=== PATIENT | male | born 1940 | race Caucasian/White ===

== ENCOUNTER → 2016-12-25 | Outpatient (CLI) | payer MEDICARE ==
[~2016-12-25] MED LIST: ASPI-266 PO; CEPH500C PO; CHOL100061 PO; CPR500T PO; ERGO2000 PO; FENO134C PO; HCT25T; HYDR-3583 PO; HYDR-707 PO; HYOS0.1216 PO; LISI1TAB PO; LVT.05T PO; METO25TA6 PO; MTF500T PO; OLME40TA14; OMEG-9 PO; PHEN200T27 PO; PNV1TABL74 PO; RIVA20TA4 PO; SIMV40TA2 PO
== END ==
LOC: LAB 10:22
PROVIDERS: ATTEND Urology
DX: Z08 Encounter for follow-up examination after completed treatment for malignant neoplasm (principal); Z85.51 Personal history of malignant neoplasm of bladder
CPT/HCPCS: 88112

== ENCOUNTER 2017-06-30 20:57 | Outpatient (CLI) | payer MEDICARE ==
[~2017-06-30 20:57] MED LIST changes: +ASPI-983 PO; +CHOL10007 PO; +FLUT1AER IH; +LEVO50TA6 PO; +METF500T4 PO; +METO-333 PO; +RIVA20TA PO; +SIMV40TA4 PO
== END 2017-07-01 06:40 | disposition home or self-care (01) ==
LOC: SLEEP 20:57
PROVIDERS: ATTEND Family Medicine
DX: G47.10 Hypersomnia, unspecified (principal)
CPT/HCPCS: 95810

== ENCOUNTER → 2017-08-10 | Outpatient (CLI) | payer MEDICARE ==
[~2017-08-10] MED LIST changes: +CATHETER FLUSH 10 ML SYR IV PRN; +IOHEXOL 350 MG/ML 150 ML (OMNIPAQUE 350) VIAL IV ONE; +NS 100 ML (IVPB) BAG IV ONE
[2017-08-10 08:43] LABS: BLOOD UREA NITROGEN 16 MG/DL (7-18); BUN/CREATININE RATIO 20; CREATININE SERUM 0.81 MG/DL (0.60-1.30); GFR ESTIMATED > 60
--- NOTE | 2017-08-10 13:17 | Diagnostic Imaging Report ---
PROCEDURE: CT angiography of the chest with contrast. TECHNIQUE: Multiple contiguous axial images were obtained through the chest after uneventful bolus administration of intravenous contrast. Reconstructed CTA MIP acquisitions were also performed. INDICATION: Followup dilated aortic root. 125 mL of Omnipaque 350 is administered intravenously. COMPARISON: 12/28/13. FINDINGS: The lungs demonstrate severe emphysema changes, worst in the upper lobes. There is no significant consolidation, mass or suspicious nodule. There is mild ectasia of the aortic root measuring up to 3.8 cm in caliber. No significant aneurysmal dilatation of the thoracic aorta. There is no aortic dissection. The great vessels branches from the aortic arch are patent. The heart size is normal. Coronary artery calcifications are noted. There is no pericardial or pleural effusion. No significant hilar, axillary or mediastinal lymphadenopathy. Sections in the upper abdomen demonstrate atherosclerotic disease and mild ectasia of the aorta with no significant aneurysmal dilatation. The osseous structures demonstrate degenerative changes. IMPRESSION: 1. Severe emphysema. 2. Mild ectasia of the aortic root measuring 3.8 cm. No significant aneurysmal dilatation. No dissection. Dictated by: Dictated on workstation # [id number]
== END ==
LOC: RAD 08:11
PROVIDERS: ATTEND Internal Medicine Interventional Cardiology
DX: I77.810 Thoracic aortic ectasia (principal); J43.9 Emphysema, unspecified
CPT/HCPCS: 36415; 71275; 82565; 84520

== ENCOUNTER → 2017-10-11 | Outpatient (CLI) | payer MEDICARE ==
[~2017-10-11] MED LIST changes: +IOHEXOL 350 MG/ML 100 ML (OMNIPAQUE 350) VIAL IV ONE; -IOHEXOL 350 MG/ML 150 ML (OMNIPAQUE 350) VIAL IV ONE
[2017-10-11 12:42] LABS: BUN/CREATININE RATIO 23; CREATININE SERUM 0.77 MG/DL (0.60-1.30); GFR ESTIMATED > 60
--- NOTE | 2017-10-11 14:44 | Diagnostic Imaging Report ---
PROCEDURE: CT angiography of the chest with contrast. TECHNIQUE: Multiple contiguous axial images were obtained through the chest after uneventful bolus administration of intravenous contrast. Reconstructed CTA MIP acquisitions were also performed. INDICATION: Dilated aortic root. FINDINGS: The previous CTA chest exam of 08/10/2017 noted mild ectasia of the aortic root. On the coronal images of the prior exam, the aortic root measured approximately 3.8 cm in maximum transverse diameter. On this study, the root measures slightly larger and is now estimated to be 4.0 cm. The ascending aorta measures 3.4 cm in maximum diameter. There is no sign of a dissection. There is no defect within the pulmonary arteries to indicate a pulmonary embolus. The heart size is within normal limits and stable when compared to the prior exam. Coronary artery calcifications are again noted. There are severe emphysematous changes involving both upper lobes, and there are emphysematous changes throughout the lower lobes as well. There is no sign of failure, pneumonia, or pleural effusion to indicate an acute abnormality. There is no mediastinal or hilar adenopathy noted. As on the prior exam, there is some mucus within the tracheal air shadow on the left. The thyroid gland was not well visualized. The sections through the upper abdomen show no evidence for an acute abnormality. The bone windows are unremarkable for a fracture or for a destructive lesion. There is a loop recorder device in place in the anterior thorax at the level of the mid sternum. IMPRESSION: 1. There is no evidence for an acute cardiopulmonary abnormality. 2. The aortic root is borderline dilated measuring approximately 4 cm. The aortic root does measure slightly larger than noted on the prior exam. 3. There are severe emphysematous changes involving both lungs, particularly the upper lobes. Dictated by: Dictated on workstation # [id number]
== END ==
LOC: RAD 12:03
PROVIDERS: ATTEND Internal Medicine Cardiovascular Disease
DX: I77.819 Aortic ectasia, unspecified site (principal); J43.9 Emphysema, unspecified; I48.0 Paroxysmal atrial fibrillation; E78.2 Mixed hyperlipidemia; I49.5 Sick sinus syndrome
CPT/HCPCS: 36415; 71275; 82565; 84520

== ENCOUNTER → 2020-12-17 | Outpatient (CLI) | payer MEDICARE ==
[~2020-12-17] MED LIST changes: +ASPI-1238 PO; -ASPI-983 PO; -CATHETER FLUSH 10 ML SYR IV PRN; -IOHEXOL 350 MG/ML 100 ML (OMNIPAQUE 350) VIAL IV ONE; +METF-397 PO; -METF500T4 PO; -NS 100 ML (IVPB) BAG IV ONE; -RIVA20TA PO; +RIVA20TA2 PO; +SIMV40TA25 PO; -SIMV40TA4 PO
== END ==
LOC: CARD 11:30
PROVIDERS: ATTEND Internal Medicine Cardiovascular Disease
DX: I10 Essential (primary) hypertension (principal); I34.8 Other nonrheumatic mitral valve disorders
CPT/HCPCS: 93306

== ENCOUNTER 2020-12-25 09:30 | Day surgery (SDC) | payer MEDICARE ==
[2020-12-25] VITALS (20 sets, daily range): BP systolic 124–190; BP diastolic 70–105
[~2020-12-25] VITALS: Ht 185 cm; Wt 55.8 kg
[2020-12-25] MEDS: NS IV 1000 ML 1,000 ML IV SCH ×4 (07:28→17:27)
[2020-12-25 07:37] LABS: WHITE BLOOD COUNT 6.8 10^3/uL (4.3-11.0)
[2020-12-25 07:59] LABS: ALANINE AMINOTRANSFERASE 27 U/L (0-55); ALKALINE PHOSPHATASE 93 U/L (40-136); BILIRUBIN,TOTAL 0.5 MG/DL (0.1-1.0); BUN/CREATININE RATIO 22; CALCIUM 9.2 MG/DL (8.5-10.1); CARBON DIOXIDE 25 MMOL/L (21-32); CHLORIDE 99 MMOL/L (98-107); CHOLESTEROL 167 MG/DL (< 200); CREATININE SERUM 0.87 MG/DL (0.60-1.30); GFR ESTIMATED > 60; GLUCOSE 113 MG/DL (70-105); HDL CHOLESTEROL 85 MG/DL (40-60); POTASSIUM 3.9 MMOL/L (3.6-5.0); SODIUM 138 MMOL/L (135-145); TOTAL PROTEIN 7.1 GM/DL (6.4-8.2); TRIGLYCERIDES 57 MG/DL (<150); VLDL CHOLESTEROL 11 MG/DL (5-40)
[2020-12-25 08:01] LABS: PROTHROMBIN TIME PATIENT 13.6 SEC (12.2-14.7)
--- NOTE | 2020-12-25 08:08 | Diagnostic Imaging Report ---
INDICATION: Preop for heart catheterization and coronary angioplasty. Patient has diastolic dysfunction and shortness of breath. Time of exam: 7:57 AM Comparison is made with prior chest from 05/22/2011. The heart size is normal. The lungs demonstrate some hyperinflation consistent with COPD. No infiltrates are seen. There is no effusion or pneumothorax. IMPRESSION: COPD. No other significant abnormality is detected. Dictated by: Dictated on workstation # [id number]
--- NOTE | 2020-12-25 08:37 | Conscious Sedation/ASA ---
Conscious Sedation Pre-Proced Time 08:36 ASA Score 3 For ASA 3 and 4: Consider anesthesia and medical clearance. Also, for patients with a history of failed moderate sedation consider anesthesia. Airway Lungs Heart ASA score ASA 1: a normal healthy patient ASA 2: a patient with a mild systemic disease (mid diabetes, controlled hypertension, obesity x ASA 3: a patient with a severe systemic disease that limits activity (angina, COPD, prior Myocardial infarction) ASA 4: a patient with an incapacitating disease that is a constant threat to life (CHF, renal failure) ASA 5: a moribund patient not expected to survive 24 hrs. (ruptured aneurysm) ASA 6: a declared brain- patient whose organs are being harvested. For emergent operations, add the letter E after the classification Mallampati Classification Grade 3 Sedation Plan Analgesia, Amnesia, Plan communicated to team members, Discussed options with patient/fam, Discussed risks with patient/fam The patient is an appropriate candidate to undergo the planned procedure, sedation, and anesthesia. The patient immediately re-assessed prior to indication. BETTE BRAN MD Dec 25, 2020 08:37
--- NOTE | 2020-12-25 09:17 | Cardiac Cath Report ---
Cardiac Cath Report Physician (s)/Sole Tier (s) Physician BETTE BRAN MD Pre-Procedure Diagnosis Pre-Procedure Diagnosis: Coronary artery disease Post-Procedure Note Procedure Start Date: Dec 25, 2020 Name of Procedure: Left heart catheterization Stenting to the LAD Findings/Procedure Note PROCEDURE NOTE: 80 years old gentleman with history of paroxysmal atrial fibrillation/atrial flutter, had significant drop in his left ventricular systolic function, scheduled for cardiac catheterization possible PTCA. After explaining the procedure to the patient, all pros and cons were explained, all questions were answered. The patient signed the consent and then he was placed on the cardiac catheterization laboratory. Groin was prepped SL fashion local anesthesia was used. Sheath placed in the artery. Geetha right and left catheter were used to access the coronary system. Geetha right catheter was prolapsed to the left ventricular cavity, pressure was measured no left ventriculogram was done, pullback LV to aorta was measured. Percutaneous intervention Patient has severe stenosis in the mid LAD, 5000 units of heparin were given, FL 4.0 guide was advanced to the left coronary system, a BMW wire was advanced and parked in the distal LAD. Predilatation with 2.5 x 20 mm balloon then deployment of Lizzette 2.75 x 23 mm under 17 sergo up to 2.93 mm with excellent results. At the end of the procedure the sheath was removed. Closure device was deployed FINDINGS: Hemodynamics LV 151/13, end-diastolic pressure of 13 Aorta 154/66 mean of 97 ANATOMY: Left Main is free of obstructive disease Left Anterior Descending is calcified at the midportion with severe stenosis, successful balloon angioplasty then deployment of Lizzette 2.75 x 23 mm stent expanded to 2.93 mm with excellent results Left Circumflex is moderate in size with mild disease nonobstructive disease Right Coronory Artery is moderate in size with no obstructive disease LV Gram was not done, pressure was measured CONCLUSION: 1. Severe stenosis in the mid LAD with calcification, successful balloon angioplasty then deployment of Lizzette 2.75 x 23 mm expanded to 2.93 mm with excellent results 2. Otherwise mild coronary artery disease nonobstructive disease 3. Normal left ventricular end-diastolic pressure DISCUSSION AND RECOMMENDATION: Patient was loaded on aspirin and Plavix, Xarelto was restarted, will monitor overnight and planning for discharge in the morning Anesthesia Type: Conscious Sedation Estimated blood loss (mL): 25 ml Contrast Amount: 100 ml Total Radiation Dose: 208 mGy Post-Procedure Diagnosis Post-operative diagnosis: Coronary artery disease Congestive heart failure, chronic compensated left ventricular systolic dysfunction, ischemic cardiomyopathy Paroxysmal atrial fibrillation Hypertension Hyperlipidemia BETTE BRAN MD Dec 25, 2020 09:17
[~2020-12-25 09:30] MED LIST changes: +ASPIRIN 325 MG (5 GR) TABLET ONE; +ATOR10TA66 PO; +BUDE10.2 IH; +CLOPIDOGREL 300 MG (PLAVIX) TABLET PO ONE; +DIGO125T3 PO; +DILT-27 PO; +HEParin (CATH LAB) 2,000 ML IV ONE; +HEParin 1000 UNIT/ML (10ML VIAL) FOR BOLUS ONE; +IPRA3AMP31 IH; +LEVO75TA6 PO; +LIDOCAINE 1% INJ 20 ML 20 ML VIAL ONE; +MIDAZOLAM 5 MG/5 ML (VERSED) VIAL ONE; +NITRO DRIP 25000 MCG/D5W 250 ML IV ONE; +NS IV 1000 ML 1,000 ML ONE; +PATIENT MAY USE OWN MEDS, ALL PO SCH; +RT-ALBUTEROL/IPRATROPIUM 3 ML (DUONEB) VIAL IH PRN; +fentaNYL INJ 100 MCG/2 ML AMP ONE
[2020-12-25] MEDS ORDERED: RIVAROXABAN 20 MG TABLET (XARELTO) PO SCH (18:00)
[2020-12-25] MEDS: RT--FLUTICASONE/SALMETEROL 232-14 (AIRDUO RespiCLICK) IH SCH (18:05)
[2020-12-26] VITALS: BP 161/94
[2020-12-26 01:00] VITALS: BP 164/87
[2020-12-26 02:00] VITALS: BP 136/83
[2020-12-26] MEDS: NS IV 1000 ML 1,000 ML IV SCH ×2 (03:30→05:47)
[2020-12-26 03:31] LABS: HEMOGLOBIN 11.9 g/dL (13.3-17.7); MEAN PLATELET VOLUME 9.5 fL (9.0-12.2); WHITE BLOOD COUNT 7.6 10^3/uL (4.3-11.0)
[2020-12-26 03:44] LABS: CHLORIDE 100 MMOL/L (98-107); POTASSIUM 3.8 MMOL/L (3.6-5.0); SODIUM 139 MMOL/L (135-145)
[2020-12-26 03:45] LABS: CALCIUM 8.6 MG/DL (8.5-10.1); GLUCOSE 103 MG/DL (70-105)
[2020-12-26 03:47] LABS: CARBON DIOXIDE 25 MMOL/L (21-32)
[2020-12-26 03:49] LABS: CREATININE SERUM 0.75 MG/DL (0.60-1.30); GFR ESTIMATED > 60
[2020-12-26 03:50] LABS: BUN/CREATININE RATIO 15
[2020-12-26 04:00] VITALS: BP 117/95
[2020-12-26] MEDS ORDERED: CLOP75TA28 PO (06:34)
[2020-12-26] MEDS ORDERED: ASPI-1238 PO (06:34)
--- NOTE | 2020-12-26 06:35 | Discharge Inst-Post CATH ---
Discharge Inst-CATH/EP Problems Reviewed?: Yes Post Cardiac Cath/EP D/C Inst Follow Up/Plan Appointment with DR Barragan in 2-4 weeks <b>CARDIAC CATH/EP PROCEDURE DISCHARGE INSTRUCTIONS</b> ACTIVITY * Go Home directly and rest. * Limit activity of the leg (or wrist if it was used) for 7 days including aerobics, swimming, jogging, bicycling, etc. * Restrict stair-climbing for 7 days if possible, if not, climb up with your non-cath leg, then bring together on the same step. * Avoid lifting, pushing, pulling or excessive movement of the affected extremity for 7 days. * Customary sexual activity may be resumed after 2 days-use caution not to use a position that strains or causes pain to the affected extremity. * No driving for 24 hours. * NO SMOKING. * Avoid straining for bowel movements for 7 days. * Gentle walking on level ground is allowed. * Returning to work will depend on the type of procedure and the results. Your doctor will discuss this with you. CALL YOUR DOCTOR FOR ANY OF THE FOLLOWING: *If bleeding from the puncture site occurs- Apply gentle pressure to site with clean cloth and call your doctor or EMS. * If a knot or lump forms under the skin, increases in size, or causes pain. * If bruising appears to be worsening or moving further down your leg instead of disappearing. * Temperature above 101 F. CARE OF YOUR GROIN INCISION; * Bruising or purple discoloration of the skin near the puncture site is common. * You may shower only, no bathtub bathing for 5 days. Be careful to avoid slipping as your leg may feel stiff. * If a closure device was used on your femoral artery, please see the attached guide regarding care of the device and your leg. * Leave dressing on FOR 24 hours. CARE OF YOUR WRIST INCISION; * Bruising or purple discoloration of the skin near the puncture site is common. * You may shower. * DO NOT submerge wrist. * Leave dressing on FOR 24 hours. BETTE BARRAGAN MD Dec 26, 2020 06:35
[2020-12-26] MEDS ORDERED: LIDOCAINE 1% INJ 20 ML 20 ML VIAL ONE (07:32)
--- NOTE | 2020-12-26 07:53 | Cardiology Progress Note ---
Subjective Date Seen by Provider: Dec 26, 2020 Time Seen by Provider: 07:50 Subjective/Events-last exam Patient is in bed, feeling well, small bruising on the groin Review of Systems General: No Chills, No Night Sweats, No Fatigue, No Malaise, No Appetite, No Other HEENT: No Head Aches, No Visual Changes, No Eye Pain, No Ear Pain, No Dysphasia, No Sinus Congestion, No Post Nasal Drip, No Sore Throat, No Other Pulmonary: No Dyspnea, No Cough, No Pleuritic Chest Pain, No Other Cardiovascular: No: Chest Pain, Palpitations, Orthopnea, Paroxysmal Noc. Dyspnea, Edema, Lt Headedness, Other Objective-Cardiology Exam Last Set of Vital Signs Vital Signs 12/26/20 12/26/20 12/26/20 01:00 04:00 06:58 Temp 36.4 Pulse 89 Resp 18 B/P (MAP) 117/95 (102) Pulse Ox 98 O2 Delivery Nasal Cannula O2 Flow Rate 2.00 Capillary Refill : Less Than 3 Seconds I&O Intake and Output 12/26/20 00:00 Intake Total 250 ml Output Total 525 ml Balance -275 ml Intake Oral 250 ml Output Urine Total 525 ml Daily Weight Change No General: Alert, Oriented X3, Cooperative HEENT: Atraumatic, PERRLA Neck: Supple, No JVD, No Thyromegaly Lungs: Clear to Auscultation, Normal Air Movement Heart: Regular Rate, Normal S1, Normal S2, No Murmurs Abdomen: Normal Bowel Sounds, Soft, No Tenderness, No Hepatosplenomegaly, No Masses Extremities: No Clubbing, No Cyanosis, No Edema, Normal Pulses, No Tenderness/Swelling Skin: No Rashes, No Breakdown, No Significant Lesion Neuro: Normal Gait, Normal Speech, Strength at 5/5 X4 Ext, Normal Tone, Sensation Intact Psych/Mental Status: Mental Status NL, Mood NL Results Lab Laboratory Tests 12/26/20 02:56 A/P-Cardiology Admission Diagnosis CAD PAF HTN HLP Assessment/Plan CAD, status post stent to LAD with Lizzette 2.75 x 23 mm expanded to 2.93 with excellent results, continue to monitor PAF, loop extracted last week, will proceed with new loop implant today then discharge HTN, controlled, no changes in meds HLP , monitor lipids BETTE BRAN MD Dec 26, 2020 07:53
--- NOTE | 2020-12-26 07:55 | Implantation of Loop Monitor ---
Implant of Loop Monitior IMPLANTATION OF LOOP MONITOR REPORT DATE OF PROCEDURE: 12/26/20 PREOP DIAGNOSIS: Paroxysmal atrial fibrillation POSTOP DIAGNOSIS: Paroxysmal atrial fibrillation PROCEDURE DETAILS: The patient is a 80 male with history of paroxysmal atrial fibrillation requiring long-term surveillance. Therefore implantable loop recorder was discussed and agreed with the patient. Informed consent was taken. All risks and complications were discussed at length. The patient was draped and prepped in the usual sterile fashion. Local anesthesia was lidocaine, which was given in the substernal area close to the 4th intercostal space. Loop monitor [employer]onic [id number] was implanted according to the protocol. Steri-Strips were placed at the end of the procedure. There were no complications and the patient tolerated the procedure well. The device was interrogated with a voltage of. ANESTHESIA: Local anesthesia with lidocaine. COMPLICATIONS: None CONTRAST/FLUOROSCOPY: None CONCLUSION: Successful implantation of a new loop monitor without complication BETTE BRAN MD Dec 26, 2020 07:55
[2020-12-26] MEDS ORDERED: LIDOCAINE 1% INJ 20 ML 20 ML VIAL INJ ONE (08:15)
[2020-12-26 08:37] VITALS: BP 156/81
[2020-12-26] MEDS: RT--FLUTICASONE/SALMETEROL 232-14 (AIRDUO RespiCLICK) IH SCH (08:38)
[2020-12-26] MEDS ORDERED: dilTIAZem120 MG (CARDIZEM CD) CAP PO SCH (09:00)
[2020-12-26] MEDS ORDERED: ASPIRIN E.C. 81 MG (ECOTRIN) TAB PO SCH (09:00)
[2020-12-26] MEDS ORDERED: LEVOTHYROXINE 75 MCG (LEVOTHROID) TABLET PO SCH (09:00)
[2020-12-26] MEDS ORDERED: DIGOXIN 0.125 MG (LANOXIN) TAB PO SCH (09:00)
[2020-12-26] MEDS ORDERED: CLOPIDOGREL 75 MG (PLAVIX) TABLET PO SCH (09:00)
== END 2020-12-26 09:25 | disposition home or self-care (01) ==
LOC: CATH 09:30 → ICU 09:51 → CSD 16:09 → ICU 16:38 → CATH 12-26 09:25
PROVIDERS: ATTEND Internal Medicine Cardiovascular Disease
DX: I48.0 Paroxysmal atrial fibrillation (principal); I25.10 Atherosclerotic heart disease of native coronary artery without angina pectoris; I11.0 Hypertensive heart disease with heart failure; I50.22 Chronic systolic (congestive) heart failure; E03.9 Hypothyroidism, unspecified; E78.2 Mixed hyperlipidemia; I48.19 Other persistent atrial fibrillation; J44.9 Chronic obstructive pulmonary disease, unspecified; Z79.890 Hormone replacement therapy; Z87.891 Personal history of nicotine dependence; Z83.3 Family history of diabetes mellitus
CPT/HCPCS: 33285; 71045; 80048; 80053; 80061; 85027 ×2; 85610; 85730; 87081; 93005 ×2; 93458; 94640 ×2; C1725; C1760; C1764; C1769; C1874; C1887; C1894; C9600; 36415

== ENCOUNTER 2021-02-04 11:14 | Inpatient (IN) | payer MEDICARE ==
[~2021-02-04] VITALS: Ht 182.8 cm; Wt 60.6 kg
[~2021-02-04 11:14] MED LIST changes: -ASPIRIN 325 MG (5 GR) TABLET ONE; +CLOP75TA28 PO; -CLOPIDOGREL 300 MG (PLAVIX) TABLET PO ONE; -HEParin (CATH LAB) 2,000 ML IV ONE; -HEParin 1000 UNIT/ML (10ML VIAL) FOR BOLUS ONE; -LIDOCAINE 1% INJ 20 ML 20 ML VIAL ONE; -MIDAZOLAM 5 MG/5 ML (VERSED) VIAL ONE; -NITRO DRIP 25000 MCG/D5W 250 ML IV ONE; -NS IV 1000 ML 1,000 ML ONE; -PATIENT MAY USE OWN MEDS, ALL PO SCH; -RT-ALBUTEROL/IPRATROPIUM 3 ML (DUONEB) VIAL IH PRN; -fentaNYL INJ 100 MCG/2 ML AMP ONE
[2021-02-04] MEDS ORDERED: REGADENOSON 0.4 MG/5 ML SYR (LEXISCAN) IV ONE (11:30)
[2021-02-04] MEDS: SOTALOL 80 MG (BETAPACE) TAB PO SCH ×2 (12:04→21:00)
--- NOTE | 2021-02-04 14:56 | Tele-ICU Progress Note ---
Progress Note Available chart/ vitals / labs / Images reviewed Video assessment done using teleICU camera Discussed with RN Afebrile hemodynamically stable, no pressors, in sinur , rate control Drips: Consultants: lianet Hospital course: 02/04 -81y/o M direct admit with AFib. A/P PAF -PAF,loop recording -xarelto Sotalol initiated. CAD -s/p stent to LAD HTN, controlled COPD - LABA/ICS - home o2 - PSG 07/2017 Nocturnal hypoxemia, no POP Lines : Vanegas: Nutrition: po DVT proph: xarelto full dose Patient is step-down status (not ICU) No need for Tele-ICU interventions Plans as delineated by bedside physicians / consultants A total of 10 minutes of critical care time was devoted to this patient today, required to treat and/or prevent further deterioration of critical care condition ( as above ) . Focused Exam Height, Weight, BMI Height: 6'0.00" Weight: 156lbs. 0.0oz. 70.452290pb; 17.83 BMI Method:Stated CARLOS LANGLEY MD Feb 04, 2021 14:56
--- NOTE | 2021-02-04 15:26 | Diagnostic Imaging Report ---
INDICATION: Dyspnea. COMPARISON: 12/25/2020 TECHNIQUE: 2 radiographs of the chest dated 02/04/2021 FINDINGS: Loop recorder is identified overlying the left chest, new from the prior examination. The cardiac silhouette is within normal limits in size. No significant pulmonary vascular congestion. The lungs are again noted to be hyperinflated with flattening of the diaphragm and prominence of the anterior clear space. No focal pulmonary opacity. No pleural effusion. No pneumothorax. Mild anterior wedge deformity is identified within the mid thoracic spine, appearing new since October 2017. Mild scattered osseous degenerative changes. IMPRESSION: Mild anterior wedge deformity within the mid thoracic spine, appearing new since October 2017, though exact chronicity is uncertain. Recommend correlation for focal pain at this location. Background chronic obstructive pulmonary disease without superimposed acute cardiopulmonary abnormality. Interval placement of a loop recorder overlying the left chest. Dictated by: Dictated on workstation # [id number]
[2021-02-04] MEDS ORDERED: CHOL100045 PO (15:59)
[2021-02-04] MEDS ORDERED: TRAM50TA3 PO (15:59)
[2021-02-04] MEDS ORDERED: DRON400T6 PO (15:59)
[2021-02-04] MEDS ORDERED: PNV,1TAB PO (15:59)
[2021-02-04] MEDS ORDERED: CLOP75TA28 PO (15:59)
[2021-02-04] MEDS ORDERED: DILT120C85 PO (15:59)
[2021-02-04] MEDS ORDERED: RIVAROXABAN 20 MG TABLET (XARELTO) PO SCH (17:00)
[2021-02-04] MEDS: ATORVASTATIN 10 MG TABLET PO SCH (22:22)
[2021-02-05] VITALS (16 sets, daily range): BP systolic 65–138; BP diastolic 26–85
[2021-02-05 03:00] LABS: HEMATOCRIT 23 % (40-54); MEAN CORPUSCULAR HGB CONC 30 g/dL (32-36); MEAN CORPUSCULAR VOLUME 109 fL (80-99); MEAN PLATELET VOLUME 9.8 fL (9.0-12.2); PLATELET COUNT 259 10^3/uL (130-400); WHITE BLOOD COUNT 17.7 10^3/uL (4.3-11.0)
[2021-02-05 03:03] LABS: MEAN CORPUSCULAR HEMOGLOBIN 34 pg (25-34)
[2021-02-05 03:18] LABS: ALBUMIN 3.1 GM/DL (3.2-4.5); POTASSIUM 3.5 MMOL/L (3.6-5.0)
[2021-02-05 03:19] LABS: CALCIUM 8.3 MG/DL (8.5-10.1)
[2021-02-05 03:21] LABS: TOTAL PROTEIN 5.7 GM/DL (6.4-8.2)
[2021-02-05 03:23] LABS: BILIRUBIN,TOTAL 0.6 MG/DL (0.1-1.0)
[2021-02-05 03:24] LABS: CREATININE SERUM 1.52 MG/DL (0.60-1.30)
[2021-02-05] MEDS: LEVOTHYROXINE 75 MCG (LEVOTHROID) TABLET PO SCH (06:23)
[2021-02-05] MEDS: CATHETER FLUSH 10 ML SYR IV PRN ×2 (08:09→09:39)
[2021-02-05] MEDS: SOTALOL 80 MG (BETAPACE) TAB PO SCH ×2 (08:15→22:29)
[2021-02-05] MEDS: CLOPIDOGREL 75 MG (PLAVIX) TABLET PO SCH (08:15)
[2021-02-05 08:26] LABS: WHITE BLOOD COUNT 17.5 10^3/uL (4.3-11.0)
[2021-02-05 08:27] LABS: BASOPHILS % (AUTO) 0 % (0-10); EOSINOPHILS % (AUTO) 2 % (0-10); HEMATOCRIT 23 % (40-54); LYMPHOCYTES % (AUTO) 5 % (12-44); MEAN CORPUSCULAR HGB CONC 31 G/DL (32-36); MEAN CORPUSCULAR VOLUME 109 FL (80-99); MEAN PLATELET VOLUME 10.1 FL (7.4-10.4); MONOCYTES % (AUTO) 6 % (0-12); NEUTROPHILS % (AUTO) 86 % (42-75); PLATELET COUNT 284 10^3/uL (130-400)
[2021-02-05 08:28] LABS: EOSINOPHILS # (AUTO) 0.3 10^3/uL (0.0-0.3); LYMPHOCYTES # (AUTO) 0.9 X 10^3 (1.0-4.0); MONOCYTES # (AUTO) 1.1 X 10^3 (0.0-1.0); NEUTROPHILS # (AUTO) 15.1 X 10^3 (1.8-7.8)
--- NOTE | 2021-02-05 08:29 | History & Physical-Hospitalist ---
History of Present Illness HPI/Chief Complaint Pt is a 81yoCM with a a PMH of advanced dementia, COPD, a fib, HTN who was admitted yesterday directly by Dr Barragan to start on sotalol. Labs this mornign revealed a Hemoglobin of 7.0 which is new for him (11.9 on 12/26/20). He is unable to provide much history so all history is obtained from the records and his . She reports he has COPD and is chronically on 2lpm oxygen and has been losing weight unintentionally over the last year. He has had a work up for anemia in the past but his last colonoscopy was well over 10 years ago. She believe he had a stool culture at [facility] [place] within the last year that did not find any thing. Source: patient Date Seen 02/05/21 Time Seen by a Provider: 08:29 Attending Physician Nessa Mcfarland MD PCP Kyaw Emery MD Referring Physician Date of Admission Feb 04, 2021 at 11:20 Home Medications & Allergies Home Medications Reviewed patient Home Medication Reconciliation performed by pharmacy medication reconciliations body and frame technician and/or nursing. Patients Allergies have been reviewed. Allergies Allergies Coded Allergies NKANo Known Allergies (Unverified Allergy, Mild, 07/15/09) Past Rirnpen-Tppyvm-Ujlcis Hx Patient Social History Tobacco Use?: No Tobacco type used: Cigarettes Smoking Status: Former Smoker Substance use?: No Alcohol Use?: No Pt feels they are or have been: No Immunizations Up To Date Date of Influenza Vaccine: Jun 26, 2020 First/Initial COVID19 Vaccinat: current Second COVID19 Vaccination Amrit: current Tetanus Booster (TDap): Unknown Hepatitis A: No Hepatitis B: No Date of Pneumonia Vaccine: Jun 30, 2017 Current Status Advance Directives: No Communicates: Verbally Primary Language: Chinese Preferred Spoken Language: Chinese Is interpretation needed?: No Sensory deficits: Vision impairment, Hearing impairment Past Medical History COPD Currently Using CPAP: No Currently Using BIPAP: No Atrial Fibrillation Dementia Sexually Transmitted Disease: No Hypothyroidsim Cataract Bladder What Type of Treatment Did You: Surgical Intervention Blood Disorders: No Family Medical History Reviewed Nursing Family Hx No Pertinent Family Hx Review of Systems ROS-Unable to Obtain: dementia Constitutional: see HPI Physical Exam Physical Exam Vital Signs Vital Signs - First Documented 02/05/21 09:32 FiO2 28 Capillary Refill : Height, Weight, BMI Height: 6'0.00" Weight: 156lbs. 0.0oz. 70.825002gb; 17.83 BMI Method:Stated General Appearance: Chronically ill, Cachetic, Thin HEENT: PERRL/EOMI; No Scleral Icterus (L), No Scleral Icterus (R); Other (dry mucous membranes) Neck: Normal Inspection, Supple Respiratory: No Accessory Muscle Use, Rhonci, Other (oximask in place) Cardiovascular: Regular Rate, Rhythm, No Murmur Gastrointestinal: Normal Bowel Sounds, Non Tender, Soft Extremity: No Calf Tenderness, No Pedal Edema Neurologic/Psychiatric: Alert, Disoriented Skin: Ecchymosis, Pallor Results Results/Procedures Labs Laboratory Tests 02/05/21 02:22 02/05/21 02:25 02/05/21 20:55 02/06/21 03:34 Patient resulted labs reviewed. Imaging: Reviewed Imaging Report Imaging [facility], [place] NAME: ENT,[facility] REC#: [id number] PT STATUS: ADM IN : 1940 PHYSICIAN: BETTE BARRAGAN MD ADMIT DATE: 02/04/21/ICU Signed Date of Exam:02/04/21 CHEST PA/LAT (2 VIEW) INDICATION: Dyspnea. COMPARISON: 12/25/2020 TECHNIQUE: 2 radiographs of the chest dated 02/04/2021 FINDINGS: Loop recorder is identified overlying the left chest, new from the prior examination. The cardiac silhouette is within normal limits in size. No significant pulmonary vascular congestion. The lungs are again noted to be hyperinflated with flattening of the diaphragm and prominence of the anterior clear space. No focal pulmonary opacity. No pleural effusion. No pneumothorax. Mild anterior wedge deformity is identified within the mid thoracic spine, appearing new since October 2017. Mild scattered osseous degenerative changes. IMPRESSION: Mild anterior wedge deformity within the mid thoracic spine, appearing new since October 2017, though exact chronicity is uncertain. Recommend correlation for focal pain at this location. Background chronic obstructive pulmonary disease without superimposed acute cardiopulmonary abnormality. Interval placement of a loop recorder overlying the left chest. Dictated by: Dictated on workstation # [id number] Dict: 02/04/21 1511 Trans: 02/04/21 1608 [id number] Interpreted by: TRACI FALCON MD Electronically signed by: TRACI FALCON MD 02/04/21 1608 Assessment/Plan Admission Diagnosis A-fib Admission Status: Inpatient Order (span 2 midnights) Reason for Inpatient Admission: see below Assessment and Plan A-fib CAD HTN Started on sotalol Cardizem and digoxin stopped Xarelto stopped for anemia Cardiology consulted, appreciate recs Stress test today Anemia Weight loss Very concerning of occult malignancy New onset Hgb on 12/26/20 was 11.9 FOBT ordered Retic count high Iron panel ordered Surgery consulted, appreciate recs Last colonoscopy over 10 years ago Dark stool per RN COPD Baseline 2lpm requirement MAT protocol Hypothyroidism Continue home meds DVT ppx: Already on anticoagulation Code status: pt has been DNR for a long time. Updated this to reflect his wishes. NESSA TO MD Feb 05, 2021 08:29
[2021-02-05 08:30] LABS: ANISOCYTOSIS MODERATE; BAND NEUTROPHILS 0 %; BASOPHILS % (MANUAL) 0 %; EOSINOPHILS % (MANUAL) 0 %; LYMPHOCYTES % (MANUAL) 8 %; MONOCYTES % (MANUAL) 1 %; NEUTROPHILS % (MANUAL) 91 %; NUCLEATED RED BLOOD CELLS 1; POLYCHROMASIA MODERATE
[2021-02-05 08:31] LABS: ABSOLUTE RETIC # 185 10e9/uL (24-90); RETICULOCYTE % 8.97 % (0.50-2.40)
[2021-02-05 08:36] LABS: MEAN CORPUSCULAR HEMOGLOBIN 34 PG (25-34)
[2021-02-05] MEDS ORDERED: REGADENOSON 0.4 MG/5 ML SYR (LEXISCAN) IV ONE (08:44)
--- NOTE | 2021-02-05 08:56 | Consultation-Cardiology ---
HPI-Cardiology Cardiology Consultation Date of Consultation 02/05/21 Date of Admission Time Seen by Provider: 08:52 Indication: Atrial fibrillation HPI 81 years old gentleman with history of paroxysmal atrial fibrillation, coronary artery disease, had a loop monitor which showed multiple episodes of atrial fibrillation in addition to sinus node dysfunction and bradycardia, unable to tolerate aggressive doses of beta-blockers. Patient was seen in my office, has failed Multaq, unable to tolerate amiodarone due to severe COPD, oxygen dependent, I decided to admit him and start him on sotalol. Last night became severely bradycardic, was unable to tolerate sotalol while on diltiazem and digoxin subsequently I DC'd diltiazem and digoxin and will continue on sotalol. Patient has been having generalized fatigue and loss of energy, noted to have severe anemia. Home Medications & Allergies Allergies: Coded Allergies: NKANo Known Allergies (Unverified Allergy, Mild, 07/15/09) Home Medication List Reviewed: Yes [id number] Hx Patient Social History Marital Status: Employed/Student: retired Smoking Status: Former Smoker Type Used: Cigarettes Have you traveled recently?: No Alcohol Use?: No Immunizations Up To Date Date of Pneumonia Vaccine: Jun 30, 2017 Date of Influenza Vaccine: Jun 26, 2020 Past Medical History Discussed below Family Medical History Family Medical Hx Noncontributory Review of Systems-General Review of Systems Constitutional: see HPI, malaise EENTM: see HPI, no symptoms reported Respiratory: see HPI; No cough; dyspnea on exertion; No hemoptysis, No orthopnea, No phlegm; short of breath; No stridor, No wheezing; other (Oxygen dependent) Cardiovascular: see HPI; No chest pain, No edema, No Hx of Intervention, No palpitations, No syncope, No vascular heart diseas, No other Gastrointestinal: no symptoms reported, see HPI Genitourinary: no symptoms reported, see HPI Musculoskeletal: no symptoms reported, see HPI Skin: no symptoms reported, see HPI Psychiatric/Neurological: No Symptoms Reported, See HPI Reviewed Test Results Reviewed Test Results Lab Laboratory Tests Test 02/05/21 02:22 02/05/21 02:23 02/05/21 02:25 Range/Units White Blood Count 17.5 H 17.7 H 4.3-11.0 10^3/uL Red Blood Count 2.07 L 2.08 L 4.30-5.52 10^6/uL Hemoglobin 7.0 L 7.0 L 13.3-17.7 g/dL Hematocrit 23 L 23 L 40-54 % Mean Corpuscular Volume 109 H 109 H 80-99 fL Mean Corpuscular Hemoglobin 34 34 25-34 pg Mean Corpuscular Hemoglobin Concent 31 L 30 L 32-36 g/dL Red Cell Distribution Width 17.8 H 17.8 H 10.0-14.5 % Platelet Count 284 259 130-400 10^3/uL Mean Platelet Volume 10.1 9.8 9.0-12.2 fL Neutrophils (%) (Auto) 86 H 42-75 % Lymphocytes (%) (Auto) 5 L 12-44 % Monocytes (%) (Auto) 6 0-12 % Eosinophils (%) (Auto) 2 0-10 % Basophils (%) (Auto) 0 0-10 % Neutrophils # (Auto) 15.1 H 1.8-7.8 X 10^3 Lymphocytes # (Auto) 0.9 L 1.0-4.0 X 10^3 Monocytes # (Auto) 1.1 H 0.0-1.0 X 10^3 Eosinophils # (Auto) 0.3 0.0-0.3 10^3/uL Basophils # (Auto) 0.0 0.0-0.1 10^3/uL Neutrophils % (Manual) 91 % Lymphocytes % (Manual) 8 % Monocytes % (Manual) 1 % Eosinophils % (Manual) 0 % Basophils % (Manual) 0 % Band Neutrophils 0 % Nucleated Red Blood Cells 1 Percent Immature Platelet Fraction 2.2 0.0-7.6 % Polychromasia MODERATE Anisocytosis MODERATE Macrocytosis MODERATE Absolute Reticulocyte Count 185 H 24-90 10e9/uL Percent Reticulocyte Count 8.97 H 0.50-2.40 % Sodium Level 152 H 135-145 MMOL/L Potassium Level 3.5 L 3.6-5.0 MMOL/L Chloride Level 115 H 98-107 MMOL/L Carbon Dioxide Level 26 21-32 MMOL/L Anion Gap 11 5-14 MMOL/L Blood Urea Nitrogen 41 H 7-18 MG/DL Creatinine 1.52 H 0.60-1.30 MG/DL Estimat Glomerular Filtration Rate 44 BUN/Creatinine Ratio 27 Glucose Level 104 70-105 MG/DL Calcium Level 8.3 L 8.5-10.1 MG/DL Corrected Calcium 9.0 8.5-10.1 MG/DL Total Bilirubin 0.6 0.1-1.0 MG/DL Aspartate Amino Transf (AST/SGOT) 71 H 5-34 U/L Alanine Aminotransferase (ALT/SGPT) 49 0-55 U/L Alkaline Phosphatase 79 40-136 U/L Troponin I 0.066 H <0.028 NG/ML Total Protein 5.7 L 6.4-8.2 GM/DL Albumin 3.1 L 3.2-4.5 GM/DL Triglycerides Level 60 <150 MG/DL Cholesterol Level 90 < 200 MG/DL LDL Cholesterol Direct 34 1-129 MG/DL VLDL Cholesterol 12 5-40 MG/DL HDL Cholesterol 40 40-60 MG/DL Thyroid Stimulating Hormone (TSH) 0.63 0.35-4.94 UIU/ML Physical Exam Physical Exam Vital Signs Vital Signs - First Documented Capillary Refill : Height, Weight, BMI Height: 6'0.00" Weight: 156lbs. 0.0oz. [id number]; 17.83 BMI Method:Stated General Appearance: No Apparent Distress, WD/WN Eyes: Bilateral Eye Normal Inspection, Bilateral Eye PERRL, Bilateral Eye EOMI HEENT: PERRL/EOMI, TMs Normal, Normal ENT Inspection, Pharynx Normal, Moist Mucous Membranes Neck: Full Range of Motion, Normal Inspection, Non Tender, Supple, Carotid Bruit Respiratory: Chest Non Tender, Normal Breath Sounds, No Accessory Muscle Use, No Respiratory Distress Cardiovascular: No Edema, No Gallop, No JVD, No Murmur, Normal Peripheral Pulses, Irregularly Irregular Gastrointestinal: Normal Bowel Sounds, No Organomegaly, No Pulsatile Mass, Non Tender, Soft Back: Normal Inspection, No CVA Tenderness, No Vertebral Tenderness Extremity: Normal Capillary Refill, Normal Inspection, Normal Range of Motion, Non Tender, No Calf Tenderness, No Pedal Edema Neurologic/Psychiatric: Alert, Oriented x3, No Motor/Sensory Deficits, Normal Mood/Affect Skin: Normal Color, Warm/Dry Lymphatic: No Adenopathy A/P-Cardiology Admission Diagnosis Anemia GI bleed Paroxysmal atrial fibrillation Sinus node dysfunction Coronary artery disease Assessment/Plan Anemia, probably GI loss, has been maintained on Xarelto which will be held at this point, patient had drug-eluting stent placed in December 2020, maintained on Plavix. Evaluate stool for occult blood, Dr. Garcia was consulted Generalized fatigue and weakness, probably a combination of anemia and bradycardia. Sinus node dysfunction, was unable to tolerate beta-blockers had history of syncope in the remote past after a wasp sting. Had multiple pauses on his loop monitor up to 4 seconds. Patient was severely bradycardic last night, I will discontinue diltiazem and digoxin and use sotalol alone and evaluate tolerance and response. Paroxysmal Atrial fib/flutter, underwent HIRA with electrical cardioversion on June 24, [address] Stoll. History of loop implantation in 2019, battery depleted, new loop monitor was implanted on December 26, 2020. Site is healing well, having significant bruising on that area. Loop monitor interrogation showed multiple episodes of atrial fibrillation. Started on Multaq without any benefit, cannot take amiodarone due to the severe COPD and oxygen dependent. I will admit him to the hospital and start him on sotalol Coronary artery disease, cardiac catheterization done on December 25, 2020 showing severe stenosis in the mid LAD with calcification with balloon angioplasty and deployment of Lizzette 2.75 x 23 mm stent expanded to 2.93 with excellent results, otherwise mild coronary artery disease. Abnormal echocardiogram with significant drop in left ventricular function, ejection fraction 35 to 40%, grade 1 diastolic dysfunction, moderately calcified mitral annulus, PA pressure 30 to 35 mmHg. I am planning to evaluate stress test tomorrow Dyspnea, COPD, oxygen dependent, had sleep study done in 2016, no sleep apnea was detected. Continue to monitor [id number] score of 3, yearly risk of stroke without oral anticoagulation is 3.2 percent. He is maintained on Xarelto. Currently on hold due to possible GI bleed Diabetes mellitus, maintained on metformin. Managed by primary care physician. Syncope-one episode immediately after wasp sting. Resolved. No further episodes. Continue to monitor History of spontaneous pneumothorax in November 2014-managed at [facility]. Hypertension, was hypotensive last night, monitor blood pressure Hyperlipidemia, had lipid profile done in October 2020 at [facility], I will evaluate lipid profile prior to the cardiac catheterization History of bladder cancer Mild nonobstructive carotid artery stenosis, last ultrasound was done in December 2020, continue to monitor Prominent aortic root noted on HIRA, CT scan of the thoracic aorta was done in October 2017 showing borderline aortic root measuring approximately 4 cm, severe emphysema noted. Continue to monitor followed by primary care physician BETTE BRAN MD Feb 05, 2021 8:56 am
[2021-02-05] MEDS ORDERED: dilTIAZem120 MG (CARDIZEM CD) CAP PO SCH (09:00)
[2021-02-05] MEDS ORDERED: DIGOXIN 0.125 MG (LANOXIN) TAB PO SCH (09:00)
[2021-02-05] MEDS ORDERED: RT-ALBUTEROL SULF 2.5 MG/3 ML PRE-MIX VIAL INH PRN (09:45)
[2021-02-05] MEDS: PANTOPRAZOLE 40 MG (PROTONIX) TAB PO SCH (11:04)
[2021-02-05] MEDS: RT-ALBUTEROL/IPRATROPIUM 3 ML (DUONEB) VIAL INH SCH ×4 (11:12→22:25)
--- NOTE | 2021-02-05 12:48 | Cardiology Stress Test Report ---
Stress Test Report Date of Procedure/Referring: Date of Procedure: Feb 05, 2021 PCP Kathe Mcfarland MD Admitting Physician Kyaw Emery MD Indications: Atrial fibrillation Baseline Blood Pressure: Blood Pressure Systolic: 65 Blood Pressure Diastolic: 36 Baseline Vitals Vital Signs Date Time Temp Pulse Resp B/P (MAP) Pulse Ox O2 Delivery O2 Flow Rate FiO2 02/04/21 11:35 36.6 78 13 130/109 (116) 100 Nasal Cannula 3.00 02/05/21 09:32 28 Baseline EKG: Baseline EKG: Normal sinus rhythm Summary After explaining the procedure to the patient, he signed a consent and then brought to the stress nuclear laboratory. Patient received 0.4 mg Lexiscan for stress test, ECG, heart rate and blood pressure were monitored continuously. Resting and stress dose of radio tracer were injected, imaging was acquired and reviewed in short axis, horizontal long axis and vertical long axis views. TID: 0.87 SSS: 4 SDS: 0 EF: 87 1. Patient tolerated Lexiscan well 2. No significant ischemia or infarction on SPECT images 3. Normal left ventricular size, EF 83% BETTE BRAN MD Feb 05, 2021 12:48
--- NOTE | 2021-02-05 12:48 | Physical Therapy Evaluation ---
PT Evaluation-General Medical Diagnosis Admission Date Feb 04, 2021 at 11:20 Medical Diagnosis: afib Onset Date: Feb 04, 2021 Therapy Diagnosis Therapy Diagnosis: impaired mobility, strength, endurance Height/Weight Height (Feet): 6 Height (Inches): 0.00 Weight (Pounds): 156 Weight (Ounces): 0.0 Precautions Precautions/Isolations: Fall Prevention, Standard Precautions, Pressure Ulcer Referral Physician: Bartolo Reason for Referral: Evaluation/Treatment Medical History Additional Medical History Past Medical History COPD Currently Using CPAP: No Currently Using BIPAP: No Atrial Fibrillation Dementia Sexually Transmitted Disease: No Hypothyroidsim Cataract Bladder Reviewed History: Yes Social History Home: Single Level Current Living Status: Spouse Entry Into Home: Stairs With Railing PT Steps Into Home: 4 Patient has difficulty answering questions due to dementia, his answered most of the questions Prior Prior Level of Function SCALE: Activities may be completed with or without assistive devices. 8-Clxvkmwpop-ctntiuv completes the activity by him/herself with no assistance from a helper. 5-Set-up or Clean-up Assistance-helper sets up or cleans up; patient completes activity. [place] assists only prior to or following the activity. 4-Supervision or Touching Assistance-helper provides verbal cues and/or loy viji/steadying and/or contact guard assistance as patient completes activity. Assistance may be provided throughout the activity or intermittently. 3-Partial/Moderate Assistance-helper does LESS THAN HALF the effort. [place] lifts, holds or supports trunk or limbs, but provides less than half the effort. 2-Substantial/Maximal Assistance-helper does MORE THAN HALF the effort. [place] lifts or holds trunk or limbs and provides more than half the effort. 2-Qdfgqheja-syikou does ALL the effort. Patient does none of the effort to complete the activity. Or, the assistance of 2 or more helpers is required for the patient to complete the activity. If activity was not attempted, code reason: 7-Patient Refused. 9-Not Applicable-not attempted and the patient did not perform the activity before the current illness, exacerbation or injury. 10-Not Attempted due to Environmental Limitations-(lack of equipment, weather restraints, etc.). 88-Not Attempted due to Medical Conditions or Safety Concerns. Bed Mobility: 3 Transfers (B,C,W/C): 3 Gait: 3 Stairs: 3 Indoor Mobility (Ambulation): Needed Some Help Stairs: Needed Some Help Prior Devices Use: Walker PT Evaluation-Current Subjective Patient in bed pre tx, agrees to PT, doesn't seem to be able to say if he has any pain. Pt/Family Goals none stated Objective Patient Orientation: Person, Confused Attachments: Oxygen ROM/Strength ROM Lower Extremities WNL Strength Lower Extremities unable to test, patient cannot follow directions Sensory Hearing: Functional Transfers Roll Left to Right (QC): 4 Lying to Sitting/Side of Bed(Q: 3 Sit to Stand (QC): 3 Chair/Obn-ib-Txncv Xfer(QC): 4 Patient was able to stand with min assist, take a few steps to bedside chair with CGA and sit. Patient very SOB after just the transfer, he also needed a lot of encouragement to stand. Patient recovered fairly quickly but his O2 sensor was not able to measure his O2 during the whole tx. Balance Sitting Static: Fair Sitting Dynamic: Fair Standing Static: Fair Standing Dynamic: Fair Assessment/Needs Patient in bedside chair post tx with nurse call, phone, tray, family in room. Family instructed to call nurse if they have to leave so nurse can get him back to bed, nurse notified of this also. Patient needs min assist for supine to sit and to stand but CGA for transfers. Rehab Potential: Guarded PT Senior Care Goals Senior Care Goals PT Medical Dermatologist Goals Time Frame: Feb 12, 2021 Roll Left & Right (QC): 6 Sit to Lying (QC): 5 Lying-Sitting on Side/Bed(QC): 5 Sit to Stand (QC): 4 Chair/Hqc-cw-Mtozx Xfer(QC): 4 Walk 10 feet (QC): 4 Walk 50ft with 2 Turns (QC): 4 PT Plan Problem List Problem List: Activity Tolerance, Functional Strength, Safety, Balance, Gait, Transfer, Bed Mobility, ROM Treatment/Plan Treatment Plan: Continue Plan of Care Treatment Plan: Bed Mobility, Education, Functional Activity Norma, Functional Strength, Gait, Safety, Therapeutic Exercise, Transfers Treatment Duration: Feb 12, 2021 Frequency: 6 times per week Estimated Hrs Per Day: .25 hour per day Patient and/or Family Agrees t: Yes Safety Risks/Education Patient Education: Transfer Techniques, Correct Positioning, Safety Issues Teaching Recipient: Patient Teaching Methods: Demonstration, Discussion Response to Teaching: Reinforcement Needed Time/GCodes Time In: 1132 Time Out: 1147 Total Billed Treatment Time: 15 Total Billed Treatment 1 visit BIRD [id number] JAVED PT Feb 05, 2021 12:48
[2021-02-05] MEDS ORDERED: NS IV 1000 ML 1,000 ML ONE (13:11)
--- NOTE | 2021-02-05 13:18 | Speech Therapy Progress Note ---
Therapy Progress Note ST received order for Bedside Dysphagia Evaluation. Patient NPO this morning for stress test. ST entered patient's room this afternoon. and son present and stated his tray had been ordered. Patient was sitting on bedside chair resting his head on the table. Dr. Barragan entered the room and had nursing to assist with putting patient back in his bed due to extremely low BP. ST discharging the BDE order at this time. HAI MONTEJO Feb 05, 2021 13:18
[2021-02-05] MEDS ORDERED: NS IV 1000 ML 1,000 ML IV SCH (13:30)
--- NOTE | 2021-02-05 13:52 | Occupational Therapy Eval ---
OT Evaluation-General/PLF Medical Diagnosis Admission Date Feb 04, 2021 at 11:20 Medical Diagnosis: afib Onset Date: Feb 04, 2021 Therapy Diagnosis Therapy Diagnosis: Weakness, Decreased ADL skills Height/Weight Height (Feet): 6 Height (Inches): 0.00 Weight (Pounds): 156 Weight (Ounces): 0.0 Precautions Precautions/Isolations: Fall Prevention, Standard Precautions, Pressure Ulcer Weight Bear Status Weight Bearing Restriction: Weight Bearing/Tolerated Referral Physician: Bartolo Referral Reason: Activity Tolerance, Self Care, Evaluation/Treatment[facility] Medical History Pertinent Medical History: COPD, Dementia, HTN Reviewed History: Yes Social History Home: Single Level Current Living Status: Spouse Entry Into Home: Stairs With Railing Steps Into Home: 4 ADL-Prior Level of Function SCALE: Activities may be completed with or without assistive devices. 1-Rswsrrcopj-qzhzvfk completes the activity by him/herself with no assistance from a helper. 5-Set-up or Clean-up Assistance-helper sets up or cleans up; patient completes activity. [place] assists only prior to or following the activity. 4-Supervision or Touching Assistance-helper provides verbal cues and/or touching/steadying and/or contact guard assistance as patient completes activity. Assistance may be provided throughout the activity or intermittently. 3-Partial/Moderate Assistance-helper does LESS THAN HALF the effort. [place] lifts, holds or supports trunk or limbs, but provides less than half the effort. 2-Substantial/Maximal Assistance-helper does MORE THAN HALF the effort. [place] lifts or holds trunk or limbs and provides more than half the effort. 1-Kqsypwhzg-giqbww does ALL the effort. Patient does none of the effort to complete the activity. Or, the assistance of 2 or more helpers is required for the patient to complete the activity. If activity was not attempted, code reason: 7-Patient Refused. 9-Not Applicable-not attempted and the patient did not perform the activity before the current illness, exacerbation or injury. 10-Not Attempted due to Environmental Limitations-(lack of equipment, weather restraints, etc.). 88-Not Attempted due to Medical Conditions or Safety Concerns. ADL PLOF Comments Spouse present and is able to provide all history for pt. She states that pt. requires care from her with all ADLs. He does not have much of an appetite, and at home often refuses to eat. When he is hungry, she reports he has some difficulty feeding self. She is unsure if he is uncoordinated, or if it is a cognitive problem with bringing food to mouth. He uses a rolling walker at home, and until recently was able to use it independently. Self Care: Needed Some Help Functional Cognition: Dependent DME/Equipment Comments Rolling walker Drive Self: No OT Current Status Subjective Pt. does not verbalize during evaluation. He is up in chair, and smiles. He puts his head in his hands, and leans forward, rocking throughout session. Spouse and son in room and are able to verbalize information for him. Mental Status/Objective Patient Orientation: Confused Advanced dementia Current Upper Extremity ROM Pt. is able to lift left UE to approximately 90 degrees at shoulder level, and 60 degrees on right at shoulder level. Pt. is able to squeeze OT's hands, and demonstrates approximately 3/5 hand strength. OT does not test strength beyond that due to multiple bruising from blood thinner and lines. ADL-Treatment Eating (QC): 3 (Mod assistance at times due to decreased processing.) Shower/Bathe Self (QC): 2 (Per clinical judgement and spouse report.) Upper Body Dressing (QC): 2 Lower Body Dressing (QC): 2 (Per clinical judgement and spouse report.) On/Off Footwear (QC): 1 Toileting Hygiene (QC): 1 (Per spouse report, pt. is incotinent at times at home, and she assists him with cleansing.) Other Treatments Pt. up in chair. Son and spouse in room and are able to talk with OT about previous level. Pt. requires assistance with all tasks. Pt. able to follow cues of assessment of some MMT and ROM testing, but otherwise keeps hands in head in chair. Pt. unable to answer if he is having pain, or if his back hurts. OT places pillow behind back to see if this helps. He leans back, and then leans forward again. Spouse states he has only been up an hour, and he is waiting for lunch. First, he is waiting for physician to take him off of NPO. Spouse indicates that she did feed him yesterday, as he did seem hungry and was having difficulty feeding self. This will be goal of OT, to provide assistive devices if possibly needed when pt. is allowed to eat. OT will also work toward increased overall strengthening. However, due to advanced dementia, likelihood of skilled education for ADL training is very limited. Goals will be for feeding and strengthening only. Pt. up in chair with all needs met at end of session. Education OT Patient Education: Correct positioning, Modified ADL techniques, Progress toward Goal/Update tx plan, Purpose of tx/functional activities, Reviewed precautions, Rehab process Teaching Recipient: Patient, Family Teaching Methods: Discussion Response to Teaching: Unable to Return Demonstration, Unable to Comprehend OT Jewel Diameter Gauger Goals Jewel Diameter Gauger Goals Time Frame: Feb 19, 2021 Eating (QC): 4 (With adaptive equipment as needed.) Additional Goals: 3-ImproveStrength/Norma 1=Demonstrate adherence to instructed precautions during ADL tasks. 2=Patient will verbalize/demonstrate understanding of assistive devices/modifications for ADL. 3=Patient will improve strength/tolerance for activity to enable patient to perform ADL's. OT Education/Plan Problem List/Assessment Assessment: Decreased Activ Tolerance, Decreased Safety Aware, Decreased UE Strength, Dependent Transfers, Impaired Bed Mobility, Impaired Cognition, Impaired Coordination, Impaired Funct Balance, Impaired I ADL's, Impaired Self- Care Skills, Restricted Funct UE ROM Discharge Recommendations Plan/Recommendations: Continue POC Therapy Discharge Recommendati: 24 Hour Supervision Comment Equipment needs to be determined. Treatment Plan/Plan of Care Treatment,Training & Education: Yes Patient would benefit from OT for education, treatment and training to promote independence in ADL's, mobility, safety and/or upper extremity function for ADL's. Plan of Care: ADL Retraining, Functional Mobility, UE Funct Exercise/Act Treatment Duration: Feb 19, 2021 Frequency: 5 times per week Estimated Hrs Per Day: .25 hour per day Agreement: Yes Rehab Potential: Guarded Time/GCodes Start Time: 12:50 Stop Time: 13:00 Total Time Billed (hr/min): 10 Billed Treatment Time 1, DEBORAH BAUER OT Feb 05, 2021 13:52
[2021-02-05] MEDS ORDERED: NS IV 500 ML 500 ML IV SCH ×2 (15:45)
[2021-02-05] MEDS: ATORVASTATIN 10 MG TABLET PO SCH (22:29)
--- NOTE | 2021-02-05 23:34 | Consultation - Surgery ---
History of Present Illness History of Present Illness Patient Consulted On(tammi/time) 02/05/21 23:28 Time Seen by Provider: 19:10 Reason for Visit: Atrial fibrillation History of Present Illness Surgery asked to consult regarding Anemia, +FOBT and Hypotension. HPI per Hospitalist: Pt is a 81yoCM with a a PMH of advanced dementia, COPD, a fib, HTN who was admitted yesterday directly by Dr Barragan to start on sotalol. Labs this mornign revealed a Hemoglobin of 7.0 which is new for him (11.9 on 12/26/20). He is unable to provide much history so all history is obtained from the records and his . She reports he has COPD and is chronically on 2lpm oxygen and has been losing weight unintentionally over the last year. He has had a work up for anemia in the past but his last colonoscopy was well over 10 years ago. She believe he had a stool culture at [facility] within the last year that did not find anything. Pt is mildly demented and had no complaints. He was getting blood transfusions when I saw him and the nurse stated he now had the best BP he's had since he got there. His was not available when I saw him. Allergies and Home Medications Allergies Coded Allergies: Abisai Known Allergies (Unverified Allergy, Mild, 07/15/09) Home Medications Atorvastatin Calcium 10 Mg Tablet, 10 MG PO Q72H, (Reported) Last Action: Reviewed Budesonide/Formoterol Fumarate 10.2 Gm Hfa.aer.ad, 2 PUFF IH BID, (Reported) Last Action: Reviewed Cholecalciferol (Vitamin D3) 25 Mcg Tablet, 25 MCG PO DAILY, (Reported) Last Action: Reviewed Clopidogrel Bisulfate 75 Mg Tablet, 75 MG PO DAILY, (Reported) Last Action: Reviewed Digoxin 125 Mcg Tablet, 125 MCG PO DAILY, (Reported) Last Action: Reviewed Diltiazem HCl 120 Mg Capsule.er, 120 MG PO DAILY, (Reported) Last Action: Reviewed Dronedarone HCl 400 Mg Tablet, 400 MG PO BID, (Reported) Last Action: Reviewed Levothyroxine Sodium 75 Mcg Tablet, 75 MCG PO DAILY, (Reported) Last Action: Reviewed Pnv,Calcium 72/Iron/Folic Acid 1 Each Tablet, 1 EA PO HS, (Reported) Last Action: Reviewed Rivaroxaban 20 Mg Tablet, 20 MG PO 1800, (Reported) Last Action: Reviewed Tramadol HCl 50 Mg Tablet, 50 MG PO Q8H PRN for PAIN-MODERATE (5-7), (Reported) Last Action: Reviewed Patient Home Medication List Home Medication List Reviewed: Yes Past [id number]-Uryvgs Hx Patient Social History Smoking Status: Former Smoker Type Used: Cigarettes Alcohol Use?: No Have you traveled recently?: No Immunizations Up To Date Date of Pneumonia Vaccine: Jun 30, 2017 Date of Influenza Vaccine: Jun 26, 2020 Respiratory History of Respiratory Disorde: Yes Respiratory Disorders: COPD Cardiovascular History of Cardiac Disorders: Yes Cardiac Disorders: Atrial Fibrillation Neurological History of Neurological Disord: Yes Neurological Disorders: Dementia Reproductive System Hx Reproductive Disorders: No Sexually Transmitted Disease: No Genitourinary History of Genitourinary Disor: Yes (BLADDER CANCER) Gastrointestinal History of Gastrointestinal Di: No Endocrine Endocrine Disorders: Hypothyroidsim HEENT HEENT Disorders: Cataract Cancer History of Cancer: Yes Cancer: Bladder Blood Transfusions History of Blood Disorders: No Family Medical History Significant Family History: No Pertinent Family Hx Review of Systems-General ROS-Unable to Obtain: pt is demented and really doesn't answer questions Physical Exam-General Problems Physical Exam Vital Signs Vital Signs - First Documented 02/05/21 09:32 FiO2 28 Capillary Refill : General Appearance: no apparent distress, cachetic Eyes: Bilateral Eye PERRL, Bilateral Eye EOMI HEENT: pharynx normal; No scleral icterus (R), No scleral icterus (L); other (poor dentition) Neck: non-tender Respiratory: no respiratory distress, no accessory muscle use, rhonchi Cardiovascular: no edema, no murmur, irregularly irregular Gastrointestinal: non tender, soft, no organomegaly Extremities: no pedal edema, no calf tenderness, other Neurologic/Psychiatric: alert, disoriented x 3 Skin: warm/dry, other (pt has small ecchymosis all over his arms) Lymphatic: no adenopathy (neck, axilla or groin) Data Review Labs Laboratory Tests 02/05/21 02:22: White Blood Count 17.5H, Red Blood Count 2.07L, Hemoglobin 7.0L, Hematocrit 23L, Mean Corpuscular Volume 109H, Mean Corpuscular Hemoglobin 34, Mean Corpuscular Hemoglobin Concent 31L, Red Cell Distribution Width 17.8H, Platelet Count 284, Mean Platelet Volume 10.1, Neutrophils (%) (Auto) 86H, Lymphocytes (%) (Auto) 5L , Monocytes (%) (Auto) 6, Eosinophils (%) (Auto) 2, Basophils (%) (Auto) 0, Neutrophils # (Auto) 15.1H, Lymphocytes # (Auto) 0.9L, Monocytes # (Auto) 1.1H, Eosinophils # (Auto) 0.3, Basophils # (Auto) 0.0, Neutrophils % (Manual) 91, Lymphocytes % (Manual) 8, Monocytes % (Manual) 1, Eosinophils % (Manual) 0, Basophils % (Manual) 0, Band Neutrophils 0, Nucleated Red Blood Cells 1, Percent Immature Platelet Fraction 2.2, Polychromasia MODERATE, Anisocytosis MODERATE, Macrocytosis MODERATE, Absolute Reticulocyte Count 185H, Percent Reticulocyte Count 8.97H 02/05/21 02:23: Iron Level TNP:Duplicate Order, Total Iron Binding Capacity TNP:Duplicate Order, Unsaturated Iron Binding Capacity TNP:Duplicate Order, Transferrin % Saturation TNP:Duplicate Order, Ferritin 82.1 02/05/21 02:25: White Blood Count 17.7H, Red Blood Count 2.08L, Hemoglobin 7.0L, Hematocrit 23L, Mean Corpuscular Volume 109H, Mean Corpuscular Hemoglobin 34, Mean Corpuscular Hemoglobin Concent 30L, Red Cell Distribution Width 17.8H, Platelet Count 259, Mean Platelet Volume 9.8, Sodium Level 152H, Potassium Level 3.5L, Chloride Level 115H, Carbon Dioxide Level 26, Anion Gap 11, Blood Urea Nitrogen 41H, Creatinine 1.52H, Estimat Glomerular Filtration Rate 44, BUN/Creatinine Ratio 27, Glucose Level 104, Calcium Level 8.3L, Corrected Calcium 9.0, Total Bilirubin 0.6, Aspartate Amino Transf (AST/SGOT) 71H, Alanine Aminotransferase (ALT/SGPT) 49, Alkaline Phosphatase 79, Troponin I 0.066H, Total Protein 5.7L, Albumin 3.1L, Triglycerides Level 60, Cholesterol Level 90, LDL Cholesterol Direct 34, VLDL Cholesterol 12, HDL Cholesterol 40, Thyroid Stimulating Hormone (TSH) 0.63 02/05/21 14:00: Stool Occult Blood Immunoassay POSITIVEH 02/05/21 20:55: Hemoglobin 8.8#L Microbiology 02/04/21 MRSA Screen - Final, Complete MRSA not isolated Assessment/Plan Assessment/Plan Assessment/Plan Anemia +FOBT Hypotension Pt is getting blood and his blood pressure is stable, he is a DNR and I need to talk to his about possible EGD and Colonoscopy. I think at the very least we could easily do an EGD, just to make sure he does not have any ulcer bleeding in his stomach or duodenum. However, I am not sure about the colonoscopy (could always be done outpt); need to find out how aggressive she wants to be. LARRY COELLO DO Feb 05, 2021 23:34
[2021-02-06 00:14] VITALS: BP 108/54
[2021-02-06] MEDS: RT-ALBUTEROL/IPRATROPIUM 3 ML (DUONEB) VIAL INH SCH ×6 (02:09→21:54)
[2021-02-06 03:48] LABS: BASOPHILS % (AUTO) 0 % (0-10); EOSINOPHILS % (AUTO) 0 % (0-10); HEMATOCRIT 33 % (40-54); HEMOGLOBIN 10.6 g/dL (13.3-17.7); LYMPHOCYTES # (AUTO) 0.6 10^3/uL (1.0-4.0); LYMPHOCYTES % (AUTO) 5 % (12-44); MEAN CORPUSCULAR HEMOGLOBIN 32 pg (25-34); MEAN CORPUSCULAR HGB CONC 32 g/dL (32-36); MEAN CORPUSCULAR VOLUME 100 fL (80-99); MEAN PLATELET VOLUME 9.8 fL (9.0-12.2); MONOCYTES # (AUTO) 0.5 10^3/uL (0.0-1.0); MONOCYTES % (AUTO) 4 % (0-12); NEUTROPHILS # (AUTO) 11.3 10^3/uL (1.8-7.8); NEUTROPHILS % (AUTO) 91 % (42-75); PLATELET COUNT 246 10^3/uL (130-400); WHITE BLOOD COUNT 12.4 10^3/uL (4.3-11.0)
[2021-02-06 04:10] LABS: BAND NEUTROPHILS 9 %; NEUTROPHILS % (MANUAL) 83 %
[2021-02-06 04:11] LABS: ALBUMIN 2.8 GM/DL (3.2-4.5); LYMPHOCYTES % (MANUAL) 7 %; MONOCYTES % (MANUAL) 1 %; NUCLEATED RED BLOOD CELLS 4; POLYCHROMASIA SLIGHT
[2021-02-06 04:12] LABS: HYPOCHROMASIA SLIGHT; POTASSIUM 3.7 MMOL/L (3.6-5.0)
[2021-02-06 04:13] LABS: CALCIUM 7.8 MG/DL (8.5-10.1); MICROCYTOSIS MODERATE
[2021-02-06 04:14] LABS: TOTAL PROTEIN 5.4 GM/DL (6.4-8.2)
[2021-02-06 04:16] LABS: BILIRUBIN,TOTAL 1.5 MG/DL (0.1-1.0)
[2021-02-06 04:18] LABS: CREATININE SERUM 1.76 MG/DL (0.60-1.30)
[2021-02-06 05:53] LABS: PHOSPHORUS 4.7 MG/DL (2.3-4.7)
[2021-02-06 05:55] LABS: MAGNESIUM 2.7 MG/DL (1.6-2.4)
[2021-02-06] MEDS: LEVOTHYROXINE 75 MCG (LEVOTHROID) TABLET PO SCH (05:55)
[2021-02-06] MEDS ORDERED: KCL 20 MEQ TAB (K-DUR) PO SCH (06:00)
[2021-02-06] MEDS ORDERED: MAGNESIUM 1 GM/100 ML IVPB 100 ML IV SCH (06:00)
[2021-02-06] MEDS ORDERED: POTASSIUM CL 10MEQ/50ML IVPB 50 ML IV SCH (06:00)
[2021-02-06 07:59] VITALS: BP 108/65
--- NOTE | 2021-02-06 08:19 | Cardiology Progress Note ---
Subjective Date Seen by Provider: Feb 06, 2021 Time Seen by Provider: 08:17 Subjective/Events-last exam Patient is laying down in bed, no new complaint, generalized fatigue Review of Systems General: No Chills, No Night Sweats; Fatigue; No Malaise, No Appetite, No Other HEENT: No Head Aches, No Visual Changes, No Eye Pain, No Ear Pain, No Dysphasia, No Sinus Congestion, No Post Nasal Drip, No Sore Throat, No Other Pulmonary: Dyspnea; No Cough, No Pleuritic Chest Pain, No Other Cardiovascular: No: Chest Pain, Palpitations, Orthopnea, Paroxysmal Noc. Dyspnea, Edema, Lt Headedness, Other Objective-Cardiology Exam Last Set of Vital Signs Vital Signs 02/05/21 02/06/21 09:32 07:59 Temp 37.0 Pulse 67 Resp 19 B/P (MAP) 108/65 (79) Pulse Ox 92 O2 Delivery High Flow N/C O2 Flow Rate 10.00 FiO2 28 Capillary Refill : I&O Intake and Output 02/06/21 00:00 Intake Total 1050 ml Balance 1050 ml Intake Oral 50 ml IV Total 1000 ml # Voids 8 # Bowel Movements 1 General: Alert, Oriented X3, Cooperative HEENT: Atraumatic, PERRLA Neck: Supple, No JVD, No Thyromegaly Lungs: Clear to Auscultation, Normal Air Movement Heart: Regular Rate, Normal S1, Normal S2, No Murmurs Abdomen: Normal Bowel Sounds, Soft, No Tenderness, No Hepatosplenomegaly, No Masses Extremities: No Clubbing, No Cyanosis, No Edema, Normal Pulses, No Tenderness/Swelling Skin: No Rashes, No Breakdown, No Significant Lesion Neuro: Normal Speech, Normal Tone, Sensation Intact Psych/Mental Status: Mental Status NL, Mood NL Results Lab Laboratory Tests 02/05/21 20:55 02/06/21 03:34 A/P-Cardiology Admission Diagnosis Anemia GI bleed Paroxysmal atrial fibrillation Sinus node dysfunction Coronary artery disease Assessment/Plan Anemia, probably GI loss, Xarelto was held, Dr. Garcia was consulted, patient received blood transfusion, stool occult blood is positive Generalized fatigue and weakness, probably a combination of anemia and bradycardia. Sinus node dysfunction, was unable to tolerate beta-blockers had history of syncope in the remote past after a wasp sting. Had multiple pauses on his loop monitor up to 4 seconds. Cardizem and digoxin were discontinued, QTc is borderline prolonged, discontinue sotalol Right foot ulcer, consult Dr. Yarbrough Paroxysmal Atrial fib/flutter, underwent HIRA with electrical cardioversion on June 24, [address] Stoll. History of loop implantation in 2019, battery depleted, new loop monitor was implanted on December 26, 2020. Site is healing well, having significant bruising on that area. Loop monitor interrogation showed multiple episodes of atrial fibrillation. Started on Multaq without any benefit, cannot take amiodarone due to the severe COPD and oxygen dependent. Unable to tolerate sotalol with QTC prolongation and bradycardia Coronary artery disease, cardiac catheterization done on December 25, 2020 showing severe stenosis in the mid LAD with calcification with balloon angioplasty and deployment of Lizzette 2.75 x 23 mm stent expanded to 2.93 with excellent results, otherwise mild coronary artery disease. Abnormal echocardiogram with significant drop in left ventricular function, ejection fraction 35 to 40%, grade 1 diastolic dysfunction, moderately calcified mitral annulus, PA pressure 30 to 35 mmHg. I am planning to evaluate stress test tomorrow Dyspnea, COPD, oxygen dependent, had sleep study done in 2016, no sleep apnea was detected. Continue to monitor [id number] score of 3, yearly risk of stroke without oral anticoagulation is 3.2 percent. He is maintained on Xarelto. Currently on hold due to possible GI bleed Diabetes mellitus, maintained on metformin. Managed by primary care physician. Syncope-one episode immediately after wasp sting. Resolved. No further episodes. Continue to monitor History of spontaneous pneumothorax in November 2014-managed at [facility]. Hypertension, was hypotensive last night, monitor blood pressure Hyperlipidemia, had lipid profile done in October 2020 at [facility], I will evaluate lipid profile prior to the cardiac catheterization History of bladder cancer Mild nonobstructive carotid artery stenosis, last ultrasound was done in December 2020, continue to monitor Prominent aortic root noted on HIRA, CT scan of the thoracic aorta was done in October 2017 showing borderline aortic root measuring approximately 4 cm, severe emphysema noted. Continue to monitor followed by primary care physician BETTE BRAN MD Feb 06, 2021 08:19
[2021-02-06] MEDS: CLOPIDOGREL 75 MG (PLAVIX) TABLET PO SCH (09:14)
--- NOTE | 2021-02-06 09:52 | Diagnostic Imaging Report ---
PROCEDURE: US Bilateral lower extremity arterial. TECHNIQUE: Multiple real-time grayscale images are obtained through both lower extremity arterial systems with color Doppler imaging and color Doppler spectral analysis. INDICATION: Right foot ulcer. CORRELATION STUDY: None FINDINGS: The major arteries of both lower extremities are patent to level of the ankle. There is presence of flow in the dorsalis pedis and posterior tibial arteries at the level of the ankle. There is what appears to be some increased velocity at the mid aspect left superficial femoral artery up to 176 cm/s decreasing to 58 cm/s distal aspect the SFA does suggest a likely approximately 50% narrowing. There is a complex hypoechoic mass at the right groin. While nonspecific may very well reflect a hematoma approximately 3.2 x 1.6 cm. No internal vascular blood flow. IMPRESSION: 1. There is patency of the bilateral lower extremity arterial systems. No large vessel occlusion. However, there is focal velocity changes suggestive of a probable approximately 50% narrowing at the mid to distal aspect of the left superficial femoral artery. 2. 3 cm mass right groin. While nonspecific likely reflects a hematoma or perhaps a thrombosed pseudoaneurysm. Dictated by: Dictated on workstation # [id number]
[2021-02-06] MEDS: PANTOPRAZOLE 40 MG (PROTONIX) TAB PO SCH (10:13)
[2021-02-06 10:15] LABS: BILIRUBIN DIRECT RML REFERENCE 0.3 mg/dL (0.0-0.5)
--- NOTE | 2021-02-06 10:55 | Progress Note - Hospitalist ---
Subjective HPI/CC On Admission Date Seen by Provider: Feb 06, 2021 Time Seen by Provider: 10:54 Pt is a 81yoCM with a a PMH of advanced dementia, COPD, a fib, HTN who was admitted yesterday directly by Dr Barragan to start on sotalol. Labs this mornign revealed a Hemoglobin of 7.0 which is new for him (11.9 on 12/26/20). He is unable to provide much history so all history is obtained from the records and his . She reports he has COPD and is chronically on 2lpm oxygen and has been losing weight unintentionally over the last year. He has had a work up for anemia in the past but his last colonoscopy was well over 10 years ago. She believe he [place] [facility] [place] last [place] that did not find anything. Subjective/Events-last exam Pt reports feeling ok. Quite demented and can't tell me much else but denies pain. RN reports increase in oxygen requirement overnight. Objective Exam Vital Signs Vital Signs Date Time Temp Pulse Resp B/P (MAP) Pulse Ox O2 Delivery O2 Flow Rate FiO2 02/06/21 12:00 36.8 73 22 107/52 (70) 97 High Flow N/C 10.00 02/05/21 09:32 28 Capillary Refill : General Appearance: Chronically ill, Cachetic, Thin Respiratory: No Accessory Muscle Use, Decreased Breath Sounds Cardiovascular: Regular Rate, Rhythm, No Murmur Gastrointestinal: Normal Bowel Sounds, Non Tender, Soft Neurologic/Psychiatric: Alert, Disoriented Results/Procedures Lab Laboratory Tests 02/05/21 20:55 02/06/21 03:34 Patient resulted labs reviewed. Imaging: Reviewed Imaging Report Assessment/Plan Assessment and Plan Assess & Plan/Chief Complaint A-fib CAD HTN Continue on sotalol, but dose decreased due to renal function and pauses Cardizem and digoxin stopped Xarelto stopped for anemia Cardiology consulted, appreciate recs Stress test done yesterday Anemia Weight loss Very concerning of occult malignancy New onset Hgb on 12/26/20 was 11.9 FOBT postive Retic count high Iron panel ordered Surgery consulted, appreciate recs- plan for at least an EGD Last colonoscopy over 10 years ago COPD Baseline 2lpm requirement MAT protocol Hypothyroidism Continue home meds NESSA LEROY MD Feb 06, 2021 10:55
--- NOTE | 2021-02-06 11:29 | Progress Note - Surgery ---
Subjective Time Seen by a Provider: 09:33 Subjective/Events-last exam Pt seen and examined, lying in bed comfortable; BP ok. Review of Systems General: Fatigue Neurological: Confusion Objective Exam Vital Signs Date Time Temp Pulse Resp B/P (MAP) Pulse Ox O2 Delivery O2 Flow Rate FiO2 02/06/21 10:44 89 Nasal Cannula 15.00 02/06/21 08:00 66 20 117/78 (91) 93 High Flow N/C 4.00 02/06/21 07:59 High Flow N/C 10.00 02/06/21 07:59 37.0 67 19 108/65 (79) 92 High Flow N/C 10.00 02/06/21 07:00 67 02/06/21 06:46 High Flow N/C 10.00 02/06/21 06:38 86 Nasal Cannula 15.00 02/06/21 06:00 67 27 120/70 (87) 91 High Flow N/C 4.00 02/06/21 05:00 66 31 123/70 (87) 91 High Flow N/C 4.00 02/06/21 04:00 65 29 110/62 (78) 95 High Flow N/C 4.00 02/06/21 03:00 66 28 104/56 (72) 93 High Flow N/C 6.00 02/06/21 02:09 95 Nasal Cannula 3.00 02/06/21 02:00 64 25 115/59 (77) 95 High Flow N/C 6.00 02/06/21 01:00 63 02/06/21 01:00 68 24 95/53 (67) 93 High Flow N/C 6.00 02/06/21 00:14 36.8 63 16 108/54 96 High Flow N/C 4.00 02/06/21 00:00 62 14 100/48 (65) 97 High Flow N/C 6.00 02/05/21 23:00 62 27 102/54 (70) 96 High Flow N/C 6.00 02/05/21 23:00 62 27 102/49 (66) 96 High Flow N/C 4.00 02/05/21 22:29 63 02/05/21 22:25 95 Nasal Cannula 4.00 02/05/21 22:00 62 25 85/54 (64) 95 High Flow N/C 6.00 02/05/21 22:00 36.6 63 22 110/55 95 High Flow N/C 4.00 02/05/21 21:39 36.6 63 22 84/62 94 High Flow N/C 2.00 02/05/21 21:00 62 26 99/55 (70) 93 High Flow N/C 6.00 02/05/21 20:00 High Flow N/C 4.00 02/05/21 20:00 37.0 02/05/21 20:00 63 25 106/49 (68) 94 High Flow N/C 6.00 02/05/21 19:00 66 02/05/21 19:00 64 28 110/60 (77) 94 High Flow N/C 6.00 02/05/21 19:00 36.8 63 24 92/56 94 High Flow N/C 2.00 02/05/21 18:03 94 Nasal Cannula 4.00 02/05/21 17:25 37.2 62 20 82/50 92 High Flow N/C 4.00 02/05/21 17:05 36.8 62 17 110/82 93 High Flow N/C 4.00 02/05/21 17:00 60 110 110/82 (91) 82 High Flow N/C 6.00 02/05/21 16:00 37.0 02/05/21 16:00 60 23 85/42 (56) 96 High Flow N/C 6.00 02/05/21 15:00 63 24 78/35 (49) 92 High Flow N/C 6.00 02/05/21 15:00 63 24 71/38 (49) 92 High Flow N/C 4.00 02/05/21 14:20 High Flow N/C 4.00 02/05/21 14:08 95 Nasal Cannula 6.00 02/05/21 14:00 63 15 98/85 (89) 94 High Flow N/C 6.00 02/05/21 14:00 63 15 98/85 (89) 94 High Flow N/C 6.00 02/05/21 13:01 66 02/05/21 13:00 64 21 111/74 (86) 90 High Flow N/C 6.00 02/05/21 13:00 64 21 111/74 (86) 90 High Flow N/C 6.00 02/05/21 12:00 68 30 82/36 (51) 84 High Flow N/C 6.00 02/05/21 12:00 37.0 02/05/21 12:00 68 30 65/36 (46) 84 High Flow N/C 6.00 I & O 02/06/21 07:00 Intake Total 1550 ml Balance 1550 ml Capillary Refill : General Appearance: Chronically ill, Cachetic, Thin HEENT: PERRL/EOMI; No Scleral Icterus (L), No Scleral Icterus (R); Other (dry mucous membranes) Neck: Normal Inspection, Supple Respiratory: No Accessory Muscle Use, Rhonci, Other (oximask in place) Cardiovascular: Regular Rate, Rhythm, No Murmur Gastrointestinal: non tender, soft, no organomegaly Extremity: No Calf Tenderness, No Pedal Edema Neurologic/Psychiatric: Alert, Disoriented Skin: Ecchymosis, Pallor Lymphatic: No Adenopathy Results Lab Laboratory Tests 02/05/21 14:00: Stool Occult Blood Immunoassay POSITIVEH 02/05/21 20:55: Hemoglobin 8.8#L 02/06/21 03:34: Hemoglobin 10.6#L, White Blood Count 12.4H, Red Blood Count 3.32L, Hematocrit 33L, Mean Corpuscular Volume 100H, Mean Corpuscular Hemoglobin 32, Mean Corpuscular Hemoglobin Concent 32, Red Cell Distribution Width 18.7H, Platelet Count 246, Mean Platelet Volume 9.8, Immature Granulocyte % (Auto) 0, Neutrophils (%) (Auto) 91H, Lymphocytes (%) (Auto) 5L, Monocytes (%) (Auto) 4, Eosinophils (%) (Auto) 0, Basophils (%) (Auto) 0, Neutrophils # (Auto) 11.3H, Lymphocytes # (Auto) 0.6L, Monocytes # (Auto) 0.5, Eosinophils # (Auto) 0.0, Basophils # (Auto) 0.0, Immature Granulocyte # (Auto) 0.0, Neutrophils % (Manual) 83, Lymphocytes % (Manual) 7, Monocytes % (Manual) 1, Band Neutrophils 9, Nucleated Red Blood Cells 4, Polychromasia SLIGHT, Hypochromasia SLIGHT, Anisocytosis , Microcytosis MODERATE, Macrocytosis MODERATE, Sodium Level 155H, Potassium Level 3.7, Chloride Level 119H, Carbon Dioxide Level 21, Anion Gap 15H , Blood Urea Nitrogen 51H, Creatinine 1.76H, Estimat Glomerular Filtration Rate 38, BUN/Creatinine Ratio 29, Glucose Level 101, Calcium Level 7.8L, Corrected Calcium 8.8, Phosphorus Level 4.7, Magnesium Level 2.7H, Total Bilirubin 1.5H, Aspartate Amino Transf (AST/SGOT) 56H, Alanine Aminotransferase (ALT/SGPT) 46, Alkaline Phosphatase 68, Total Protein 5.4L, Albumin 2.8L Microbiology 02/04/21 MRSA Screen - Final, Complete MRSA not isolated Assessment/Plan Assessment/Plan Assessment/Plan Anemia +FOBT Hypotension Pt's blood pressure is stable and I spoke to his about possible EGD and Colonoscopy. She wants to at least do the EGD, just to make sure he does not have any ulcer bleeding in his stomach or duodenum. She will wait to see what that shows to make next decision. We did talk about options; not doing any endoscopy, stopping Xarelto, doing only EGD. I went over risks and complications, not limited to pain, bleeding, infection and even intestinal or esophageal perforation. All questions answered to her satisfaction. LARRY COELLO DO Feb 06, 2021 11:29
--- NOTE | 2021-02-06 11:49 | Physical Therapy Progress Note ---
Therapy Progress Note Patient's family declined PT intervention on this date due to "patient is not doing well and he is going to have a test." RN confirms procedure. PT will attempt in a.m. 1 ref ([id number]) RODERICK MILLAN PT Feb 06, 2021 11:49
[2021-02-06 12:00] VITALS: BP 107/52
[2021-02-06] MEDS ORDERED: proPOfol 200 MG/20 ML (DIPRIVAN) VIAL IV ONE (12:42)
[2021-02-06] MEDS ORDERED: NS IV 1000 ML 1,000 ML ONE (12:57)
--- NOTE | 2021-02-06 13:08 | Anesthesia-General Post-Op ---
MAC Patient Condition Mental Status/LOC: Same as Preop Cardiovascular: Satisfactory Nausea/Vomiting: Absent Respiratory: Satisfactory Pain: Controlled Complications: Absent Post Op Complications Complications None Follow Up Care/Instructions Patient Instructions None needed. Anesthesiology Discharge Order Discharge Order Patient is doing well, no complaints, stable vital signs, no apparent adverse anesthesia problems. No complications reported per nursing. GUILLERMO BROWN CRNA Feb 06, 2021 13:08
--- NOTE | 2021-02-06 15:02 | Progress Note-Post Operative ---
Post-Operative Progess Note Surgeon (s)/Sheetfed Press Operator (s) Surgeon LARRY COELLO DO Sheetfed Press Operator: none Pre-Operative Diagnosis Anemia, +FOBT Post-Operative Diagnosis Hiatal hernia Retained food in esophagus Procedure & Operative Findings Date of Procedure 02/06/21 Procedure Performed/Findings PROCEDURE NOTE: After informed consent was obtained, the patient was in his bed in the ICU placed in bed in left lateral decubitus position. He was administered IV sedation by the ALMOND SORTER who then monitored his vitals the entire time, heart rate, blood pressure and pulse ox and the scope was inserted down the mouth through the esophagus into the stomach. On the way down, noted a lot of dry hard food in his mouth and then down the esophagus as well; also saw some mild esophagitis, took a picture, pushed into the stomach, pushed past the antrum into the duodenum. Duodenum looked good. Pulled back and took a picture of the antrum, then retroflexed the scope, saw hiatal hernia and more food, took a picture of this and then pulled the scope into the GE junction, took another picture of the hiatal hernia and then pushed the scope back into the stomach, suctioned all the air out of the stomach and then pulled the scope up the esophagus, took some pictures in the esophagus. There were no ulcers or signs of bleeding in stomach or esophagus; at this point pulled the scope up the esophagus and out the mouth. The patient tolerated the procedure, and he was recovered in his bed in the ICU. Anesthesia Type IV sedation by ALMOND SORTER Estimated Blood Loss Estimated blood loss (mL): none Specimens/Packing Specimens Removed none LARRY COELLO DO Feb 06, 2021 15:02
--- NOTE | 2021-02-06 15:10 | Occ Therapy Progress Note ---
Therapy Progress Note Will hold pt. this date for Occupational therapy as PT notified this OT that pt's spouse requested no therapy due to pt having procedure and not feeling well. Will resume tomorrow if pt. able. [id number] DEBORAH LOPEZ OT Feb 06, 2021 15:10
[2021-02-06 15:27] VITALS: BP 109/56
[2021-02-06 20:00] VITALS: BP 91/56
[2021-02-06] MEDS: ATORVASTATIN 10 MG TABLET PO SCH (20:52)
[2021-02-06] MEDS ORDERED: NS IV 500 ML 500 ML IV ONE (23:15)
[2021-02-06] MEDS: NS IV 1000 ML 1,000 ML IV SCH (23:27)
[2021-02-07] VITALS: BP 88/54
[2021-02-07] MEDS: RT-ALBUTEROL/IPRATROPIUM 3 ML (DUONEB) VIAL INH SCH ×6 (02:05→22:09)
[2021-02-07 04:00] VITALS: BP 93/52
[2021-02-07] MEDS: NS IV 1000 ML 1,000 ML IV SCH ×4 (06:21→20:56)
[2021-02-07] MEDS: LEVOTHYROXINE 75 MCG (LEVOTHROID) TABLET PO SCH (06:22)
[2021-02-07 07:52] LABS: HEMATOCRIT 34 % (40-54); HEMOGLOBIN 10.9 g/dL (13.3-17.7); MEAN CORPUSCULAR HEMOGLOBIN 32 pg (25-34); MEAN CORPUSCULAR HGB CONC 32 g/dL (32-36); MEAN CORPUSCULAR VOLUME 101 fL (80-99); MEAN PLATELET VOLUME 10.1 fL (9.0-12.2); PLATELET COUNT 237 10^3/uL (130-400); WHITE BLOOD COUNT 12.9 10^3/uL (4.3-11.0)
[2021-02-07 08:04] LABS: CALCIUM 7.5 MG/DL (8.5-10.1); CREATININE SERUM 1.37 MG/DL (0.60-1.30); POTASSIUM 3.8 MMOL/L (3.6-5.0)
--- NOTE | 2021-02-07 08:08 | Progress Note - Hospitalist ---
Subjective HPI/CC On Admission Date Seen by Provider: Feb 07, 2021 Time Seen by Provider: 08:04 Pt is a 81yoCM with a a PMH of advanced dementia, COPD, a fib, HTN who was admitted yesterday directly by Dr Barragan to start on sotalol. Labs this mornign revealed a Hemoglobin of 7.0 which is new for him (11.9 on 12/26/20). He is unable to provide much history so all history is obtained from the records and his . She reports he has COPD and is chronically on 2lpm oxygen and has been losing weight unintentionally over the last year. He has had a work up for anemia in the past but his last colonoscopy was well over 10 years ago. She believe he had a stool culture at [facility] within the last year that did not find anything. Subjective/Events-last exam Pt denies any complaints. Lying in bed. RN at bedside. Discussed adoption social worker consult and concern for aspiration. Objective Exam Vital Signs Vital Signs Date Time Temp Pulse Resp B/P (MAP) Pulse Ox O2 Delivery O2 Flow Rate FiO2 02/07/21 07:59 36.3 02/07/21 07:52 95 OxyMask 5.00 02/07/21 07:00 76 02/07/21 04:00 28 113/68 (83) 02/05/21 09:32 28 Capillary Refill : General Appearance: Chronically ill, Cachetic, Thin Respiratory: No Accessory Muscle Use, Decreased Breath Sounds Cardiovascular: No Murmur, Irregularly Irregular Gastrointestinal: Normal Bowel Sounds, Soft Neurologic/Psychiatric: Alert, Disoriented Results/Procedures Lab Laboratory Tests 02/07/21 07:39 Patient resulted labs reviewed. Imaging: Reviewed Imaging Report Assessment/Plan Assessment and Plan Assess & Plan/Chief Complaint A-fib CAD HTN Continue on sotalol, but dose decreased due to renal function and pauses Cardizem and digoxin stopped Xarelto stopped for anemia Cardiology consulted, appreciate recs Stress test done, negative Appeared to be back in a fib this morning Anemia Weight loss Very concerning of occult malignancy Hgb on 12/26/20 was 11.9 FOBT postive Retic count high Iron panel reveals iron deficiency Will replenish Infed prior to DC Surgery consulted, appreciate recs- EGD done 02/06 and revealed hiatal hernia and retained food Last colonoscopy over 10 years ago COPD Baseline 2lpm requirement, currently on 5lpm via oximask MAT protocol Hypothyroidism Continue home meds NESSA LEROY MD Feb 07, 2021 08:08
--- NOTE | 2021-02-07 08:09 | Cardiology Progress Note ---
Subjective Date Seen by Provider: Feb 07, 2021 Time Seen by Provider: 08:07 Subjective/Events-last exam Patient is back to atrial fibrillation, no new complaint, still short of breath Review of Systems General: No Chills, No Night Sweats; Fatigue, Malaise; No Appetite, No Other HEENT: No Head Aches, No Visual Changes, No Eye Pain, No Ear Pain, No Dysphasia, No Sinus Congestion, No Post Nasal Drip, No Sore Throat, No Other Pulmonary: Dyspnea; No Cough, No Pleuritic Chest Pain, No Other Cardiovascular: No: Chest Pain, Palpitations, Orthopnea, Paroxysmal Noc. Dyspnea, Edema, Lt Headedness, Other Objective-Cardiology Exam Last Set of Vital Signs Vital Signs 02/05/21 02/07/21 02/07/21 02/07/21 09:32 07:00 07:52 07:59 Temp 36.3 Pulse 76 Pulse Ox 95 O2 Delivery OxyMask O2 Flow Rate 5.00 FiO2 28 Capillary Refill : I&O Intake and Output 02/07/21 00:00 Intake Total 1250 ml Balance 1250 ml Intake Oral 250 ml IV Total 1000 ml # Voids 3 # Urine Diapers 6 # Bowel Movements 7 General: Alert, Oriented X3, Cooperative HEENT: Atraumatic, PERRLA Neck: Supple, No JVD, No Thyromegaly Lungs: Clear to Auscultation, Normal Air Movement Heart: Normal S1, Normal S2, No Murmurs, Other (Atrial fibrillation) Abdomen: Normal Bowel Sounds, Soft, No Tenderness, No Hepatosplenomegaly, No Masses Extremities: No Clubbing, No Cyanosis, No Edema, Normal Pulses, No Tenderness/Swelling Skin: No Rashes, No Breakdown, No Significant Lesion Neuro: Normal Speech, Normal Tone, Sensation Intact Psych/Mental Status: Mental Status NL, Mood NL Results Lab Laboratory Tests 02/07/21 07:39 A/P-Cardiology Admission Diagnosis Anemia GI bleed Paroxysmal atrial fibrillation Sinus node dysfunction Coronary artery disease Assessment/Plan Anemia, probably GI loss, Xarelto was held, Dr. Garcia was consulted, patient received blood transfusion, stool occult blood is positive Generalized fatigue and weakness, probably a combination of anemia and bradycardia. Sinus node dysfunction, was unable to tolerate beta-blockers had history of syncope in the remote past after a wasp sting. Had multiple pauses on his loop monitor up to 4 seconds. Cardizem and digoxin were discontinued, QTc is borderline prolonged, discontinue sotalol Right foot ulcer, consult Dr. Yarbrough Paroxysmal Atrial fib/flutter, underwent HIRA with electrical cardioversion on June 24, [address] Stoll. History of loop implantation in 2019, battery depleted, new loop monitor was implanted on December 26, 2020. Site is healing well, having significant bruising on that area. Loop monitor interrogation showed multiple episodes of atrial fibrillation. Started on Multaq without any benefit, cannot take amiodarone due to the severe COPD and oxygen dependent. Unable to tolerate sotalol with QTC prolongation and bradycardia, I will go back to Multaq at this time due to failure of all other medication Coronary artery disease, cardiac catheterization done on December 25, 2020 showing severe stenosis in the mid LAD with calcification with balloon angioplasty and deployment of Lizzette 2.75 x 23 mm stent expanded to 2.93 with excellent results, otherwise mild coronary artery disease. Abnormal echocardiogram with significant drop in left ventricular function, ejection fraction 35 to 40%, grade 1 diastolic dysfunction, moderately calcified mitral annulus, PA pressure 30 to 35 mmHg. I am planning to evaluate stress test tomorrow Dyspnea, COPD, oxygen dependent, had sleep study done in 2016, no sleep apnea was detected. Continue to monitor [id number] score of 3, yearly risk of stroke without oral anticoagulation is 3.2 percent. He is maintained on Xarelto. Currently on hold due to possible GI bleed Diabetes mellitus, maintained on metformin. Managed by primary care physician. Syncope-one episode immediately after wasp sting. Resolved. No further episodes. Continue to monitor History of spontaneous pneumothorax in November 2014-managed at [facility]. Hypertension, was hypotensive last night, monitor blood pressure Hyperlipidemia, had lipid profile done in October 2020 at [facility] [place], I will evaluate lipid profile prior to the cardiac catheterization History of bladder cancer Mild nonobstructive carotid artery stenosis, last ultrasound was done in December 2020, continue to monitor Prominent aortic root noted on HIRA, CT scan of the thoracic aorta was done in October 2017 showing borderline aortic root measuring approximately 4 cm, severe emphysema noted. Continue to monitor followed by primary care physician BETTE BRAN MD Feb 07, 2021 8:09 am
[2021-02-07] MEDS: PANTOPRAZOLE 40 MG (PROTONIX) TAB PO SCH (09:10)
[2021-02-07] MEDS: CLOPIDOGREL 75 MG (PLAVIX) TABLET PO SCH (09:10)
[2021-02-07] MEDS: DRONEDARONE TABLET 400 MG TABLET PO SCH ×2 (09:10→20:18)
[2021-02-07] MEDS: morphine (ROXINOL) 10 MG/0.5 ML oral conc 0.5 ML PO PRN (10:00)
[2021-02-07] MEDS ORDERED: HYDROcodone/APAP 5 MG/325 MG (LORTAB) TAB PO PRN (10:00)
--- NOTE | 2021-02-07 11:05 | Diagnostic Imaging Report ---
INDICATION: PICC line placement. Comparison with 02/04/2021. FINDINGS: Right PICC line is now present. Tip of the PICC line is in the superior vena cava approximately 2 cm above the cavoatrial junction. The lungs are hyperaerated. There is increasing interstitial and alveolar infiltrate in the left lower lung. Bilateral obstructive lung disease noted. There is no cardiomegaly. IMPRESSION: 1. Satisfactory right PICC line placement. 2. Increasing infiltrate noted in the left lower lung. Dictated by: Dictated on workstation # [id number]
--- NOTE | 2021-02-07 11:34 | Speech Therapy Progress Note ---
Therapy Progress Note ST attempted to do a Bedside Dysphagia Evaluation, however he is unable to safely participate with oral intake at this time. Patient is currently on clear liquid diet but due to his status ST highly recommends thickening his liquids to honey consistency in order to avoid high risk of aspiration. HAI MONTEJO Feb 07, 2021 11:34
--- NOTE | 2021-02-07 12:02 | Physical Therapy Progress Note ---
Therapy Progress Note Patient is on hold per RN secondary to declined in medical status. PT to check patient status in RODERICK Calle PT Feb 07, 2021 12:02
--- NOTE | 2021-02-07 13:42 | Occ Therapy Progress Note ---
Therapy Progress Note Hold due to medical decline per nursing. 1300. JARED GUERIN OTR Feb 07, 2021 13:42
[2021-02-07] MEDS: ATORVASTATIN 10 MG TABLET PO SCH (20:18)
[2021-02-08] MEDS: RT-ALBUTEROL/IPRATROPIUM 3 ML (DUONEB) VIAL INH SCH ×3 (02:18→10:05)
[2021-02-08] MEDS: NS IV 1000 ML 1,000 ML IV SCH (03:03)
[2021-02-08 03:14] LABS: BASOPHILS % (AUTO) 0 % (0-10); EOSINOPHILS # (AUTO) 0.1 10^3/uL (0.0-0.3); EOSINOPHILS % (AUTO) 1 % (0-10); HEMATOCRIT 31 % (40-54); HEMOGLOBIN 9.7 g/dL (13.3-17.7); LYMPHOCYTES # (AUTO) 0.7 10^3/uL (1.0-4.0); LYMPHOCYTES % (AUTO) 6 % (12-44); MEAN CORPUSCULAR HEMOGLOBIN 32 pg (25-34); MEAN CORPUSCULAR HGB CONC 31 g/dL (32-36); MEAN CORPUSCULAR VOLUME 103 fL (80-99); MEAN PLATELET VOLUME 10.1 fL (9.0-12.2); MONOCYTES # (AUTO) 0.7 10^3/uL (0.0-1.0); MONOCYTES % (AUTO) 5 % (0-12); NEUTROPHILS # (AUTO) 11.2 10^3/uL (1.8-7.8); NEUTROPHILS % (AUTO) 88 % (42-75); PLATELET COUNT 188 10^3/uL (130-400); WHITE BLOOD COUNT 12.8 10^3/uL (4.3-11.0)
[2021-02-08 03:31] LABS: CHLORIDE 130 MMOL/L (98-107); POTASSIUM 3.8 MMOL/L (3.6-5.0)
[2021-02-08 03:32] LABS: CALCIUM 7.1 MG/DL (8.5-10.1)
[2021-02-08 03:33] LABS: GLUCOSE 86 MG/DL (70-105)
[2021-02-08 03:34] LABS: CARBON DIOXIDE 20 MMOL/L (21-32)
[2021-02-08 03:37] LABS: CREATININE SERUM 1.02 MG/DL (0.60-1.30); GFR ESTIMATED > 60; PHOSPHORUS 2.7 MG/DL (2.3-4.7)
[2021-02-08 03:38] LABS: BUN/CREATININE RATIO 43
[2021-02-08 03:39] LABS: MAGNESIUM 2.7 MG/DL (1.6-2.4)
[2021-02-08 03:44] LABS: SODIUM 163 MMOL/L (135-145)
[2021-02-08] MEDS ORDERED: LACTATED RINGERS 1,000 ML IV SCH (04:00)
[2021-02-08] MEDS ORDERED: MAGNESIUM 1 GM/100 ML IVPB 100 ML IV SCH (06:00)
[2021-02-08] MEDS ORDERED: POTASSIUM CL 10MEQ/50ML IVPB 50 ML IV SCH (06:00)
[2021-02-08] MEDS ORDERED: KCL 20 MEQ TAB (K-DUR) PO SCH (06:00)
[2021-02-08] MEDS: LEVOTHYROXINE 75 MCG (LEVOTHROID) TABLET PO SCH (06:39)
--- NOTE | 2021-02-08 06:41 | Progress Note - Hospitalist ---
Subjective HPI/CC On Admission Date Seen by Provider: Feb 08, 2021 Time Seen by Provider: 06:39 Pt is a 81yoCM with a a PMH of advanced dementia, COPD, a fib, HTN who was admitted yesterday directly by Dr Barragan to start on sotalol. Labs this mornign revealed a Hemoglobin of 7.0 which is new for him (11.9 on 12/26/20). He is unable to provide much history so all history is obtained from the records and his . She reports he has COPD and is chronically on 2lpm oxygen and has been losing weight unintentionally over the last year. He has had a work up for anemia in the past but his last colonoscopy was well over 10 years ago. She believe he had a stool culture at [facility] within the last year that did not find anything. Subjective/Events-last exam Pt reports doing doing ok still. Ill appearing but stable and appears chronic denies any other needs. Discussed with RN. Sandro hale made changes to fluids this morning. Objective Exam Vital Signs Vital Signs Date Time Temp Pulse Resp B/P (MAP) Pulse Ox O2 Delivery O2 Flow Rate FiO2 02/08/21 06:29 96 High Flow N/C 2.00 02/08/21 06:00 86 23 149/75 (99) 02/08/21 04:00 36.8 02/05/21 09:32 28 Capillary Refill : General Appearance: No Apparent Distress, WD/WN Respiratory: Decreased Breath Sounds, Other (2lpm NC) Cardiovascular: Regular Rate, Rhythm, No Murmur Gastrointestinal: Normal Bowel Sounds, Soft Neurologic/Psychiatric: Alert, Disoriented Results/Procedures Lab Laboratory Tests 02/07/21 07:39 02/08/21 03:05 Patient resulted labs reviewed. Imaging: Reviewed Imaging Report Assessment/Plan Assessment and Plan Assess & Plan/Chief Complaint A-fib CAD HTN Sotalol stopped by cardiology due to pauses, now back on Multaq Xarelto stopped for anemia Cardiology consulted, appreciate recs Stress test done, negative Anemia Weight loss Very concerning of occult malignancy Hgb on 12/26/20 was 11.9 FOBT postive Retic count high Iron panel reveals iron deficiency Will replenish with Infed prior to DC Surgery consulted, appreciate recs- EGD done 02/06 and revealed hiatal hernia and retained food Last colonoscopy over 10 years ago COPD Baseline 2lpm requirement, currently there MAT protocol Hypothyroidism Continue home meds NESSA LEROY MD Feb 08, 2021 06:41
[2021-02-08] MEDS: PANTOPRAZOLE 40 MG (PROTONIX) TAB PO SCH (08:54)
[2021-02-08] MEDS: CLOPIDOGREL 75 MG (PLAVIX) TABLET PO SCH (08:54)
[2021-02-08] MEDS: DRONEDARONE TABLET 400 MG TABLET PO SCH (08:54)
--- NOTE | 2021-02-08 10:21 | Diagnostic Imaging Report ---
INDICATION: NG tube placement EXAM: Portable chest at 9:48 AM NG tube appears to be in the left lower lobe bronchus. There is a loop recorder in the left lower chest. There is infiltrate in the left lower lung. There are emphysematous changes in the lungs. Right upper extremity PICC line tip projects over the SVC. IMPRESSION: NG tube has entered the airway. The tip is in the left lower lobe bronchus. CRITICAL FINDING Report given to ICU nurse (Brittney) at 10:19 AM 02/08/2021/cb Dictated by: Dictated on workstation # [id number]
[2021-02-08] MEDS ORDERED: fentaNYL INJ 100 MCG/2 ML AMP IVP PRN (11:00)
[2021-02-08] MEDS: morphine (ROXINOL) 10 MG/0.5 ML oral conc 0.5 ML PO PRN (13:32)
[2021-02-08] MEDS ORDERED: morphine (ROXINOL) 10 MG/0.5 ML oral conc 0.5 ML PO PRN ×2 (14:30→15:15)
[2021-02-08] MEDS ORDERED: ARTIFICAL TEARS 0.4 ML UNIT DOSE (REFRESH PLUS) OU PRN (14:30)
[2021-02-08] MEDS ORDERED: ONDANSETRON 4 MG/2 ML (SDV) Z0FRAN IVP PRN (14:30)
[2021-02-08] MEDS ORDERED: LORazepam INJ 2 MG/ML (ATIVAN) VIAL IVP PRN (14:30)
[2021-02-08] MEDS ORDERED: SALIVA STIMULANT MOUTH SPRAY (BIOTENE) 1.5 OZ MM PRN (14:30)
[2021-02-08] MEDS ORDERED: PROMETHAZINE INJ 25 MG/ML (PHENERGAN) AMP IVP PRN (14:30)
[2021-02-08] MEDS ORDERED: SCOPOLAMINE 1.5 MG (TRANSDERM-SCOP) PATCH TOP SCH (14:30)
[2021-02-08] MEDS ORDERED: GLYCOPYRROLATE 0.2 MG/ML (ROBINUL) 2 ML VIAL IV PRN (14:30)
[2021-02-08] MEDS ORDERED: BISACODYL 10 MG SUPP (DULCOLAX) PR PRN (14:30)
[2021-02-08] MEDS ORDERED: RT-ALBUTEROL/IPRATROPIUM 3 ML (DUONEB) VIAL INH PRN (14:30)
--- NOTE | 2021-02-08 17:21 | Progress Note - Cardiology ---
Cardiology SOAP Progress Note Subjective: Does not provide any history Does not respond to questions Objective: I&O/Vital Signs 02/08/21 02/08/21 02/08/21 02/08/21 06:00 06:29 07:00 07:00 Pulse 86 89 86 Resp 23 28 B/P (MAP) 149/75 (99) 147/46 (79) Pulse Ox 95 96 99 O2 Delivery High Flow N/C High Flow N/C High Flow N/C O2 Flow Rate 2.00 2.00 2.00 02/08/21 02/08/21 02/08/21 02/08/21 07:35 07:44 08:00 09:00 Temp 36.2 Pulse 86 91 Resp 23 B/P (MAP) 144/69 (94) 146/66 (92) Pulse Ox 95 99 94 O2 Delivery High Flow N/C High Flow N/C High Flow N/C O2 Flow Rate 3.00 2.00 2.00 02/08/21 02/08/21 02/08/21 02/08/21 10:00 10:06 11:00 12:00 Temp 36.2 Pulse 98 99 Resp 28 28 B/P (MAP) 183/63 (103) 152/60 (90) Pulse Ox 93 96 93 O2 Delivery High Flow N/C High Flow N/C High Flow N/C O2 Flow Rate 2.00 3.00 2.00 02/08/21 00:00 Intake Total 1000 ml Output Total 495 ml Balance 505 ml Weight (Pounds): 156 Weight (Ounces): 0.0 Weight (Calculated Kilograms): 70.517137 Constitutional: apparent distress, well-developed, other (thin and somewhat wasted appearance) Respiratory: No accessory muscle use; other (scattered rhonchi and coarse crackles over large airways, fair air entry) Cardiovascular: regular rate-rhythm, other (ausculation comporomised due to adventitious sounds in the lungs and the large airways) Gastrointestional: No tender; soft; No guarding, No rebound; audible bowel sounds Extremities: No clubbing, No cyanosis, No significant edema Neurologic/Psychiatric: other (appears to understand questions, but does not provide answers, appears to be somewhat short of breath and intermittently confused) Skin: No rash on exposed areas, No ulcerations on exposed areas Results/Procedures: Labs Laboratory Tests 02/08/21 03:05: White Blood Count 12.8H, Red Blood Count 3.05L, Hemoglobin 9.7L, Hematocrit 31L, Mean Corpuscular Volume 103H, Mean Corpuscular Hemoglobin 32, Mean Corpuscular Hemoglobin Concent 31L, Red Cell Distribution Width 18.7H, Platelet Count 188, Mean Platelet Volume 10.1, Immature Granulocyte % (Auto) 0, Neutrophils (%) (Auto) 88H, Lymphocytes (%) (Auto) 6L, Monocytes (%) (Auto) 5, Eosinophils (%) (Auto) 1, Basophils (%) (Auto) 0, Neutrophils # (Auto) 11.2H, Lymphocytes # (Auto) 0.7L, Monocytes # (Auto) 0.7, Eosinophils # (Auto) 0.1, Basophils # (Auto) 0.0, Immature Granulocyte # (Auto) 0.0, Sodium Level 163*H, Potassium Level 3.8, Chloride Level 130H, Carbon Dioxide Level 20L, Anion Gap 13, Blood Urea Nitrogen 44H, Creatinine 1.02, Estimat Glomerular Filtration Rate > 60, BU N/Creatinine Ratio 43, Glucose Level 86, Calcium Level 7.1L, Phosphorus Level 2.7, Magnesium Level 2.7H Microbiology 02/04/21 MRSA Screen - Final, Complete MRSA not isolated A/P: Assessment: Marked hypernatremia of unclear etiology, being managed by Hospitalist mary (Dr Mcfarland) Anemia due to GI blood loss being managed by Hospitalist and Surg services Sinus node dysfunction - not able to tolerate beta- or calcium channel blockers or dronedarone due to bradycardia - not suitable for anticoag due to anemia due to GI blood loss tht has required transfusions Coronary artery disease - LVEF on echo fo 12/17/20: 35-40% - Cath December 25, 2020: mid LAD dz stented with Lizzette 2.75 x 23 mm stent, otherwise mild coronary artery disease. DM II, managed by the Hospitalist mary H/o hypertension Hyperlipidemia, had lipid profile done in October 2020 at [facility], I will evaluate lipid profile prior to the cardiac catheterization History of bladder cancer Mild nonobstructive carotid artery stenosis, last ultrasound was done in December 2020 Prominent aortic root noted on HIRA, CT scan of the thoracic aorta was done in October 2017 showing borderline aortic root measuring approximately 4 cm, severe emphysema noted Plan: * Complex management due to multiple comorbidities * I have been informed by the nursing staff that Dr Mcfarland has ordered [id number] status and that she is managing patient's meds Clinical Quality Measures Type of Care: Type of Care: Comfort Measures ISSAC SHARP MD FACP [facility] Feb 08, 2021 17:21
[2021-02-11] MEDS ORDERED: SCOPOLAMINE PATCH REMOVAL TP SCH (14:29)
--- NOTE | 2021-02-17 08:20 | Physician Query Clarification ---
Physician Query-General Query to Physician: Dr. Mcfarland, What condition was determined to be the cause of ? PHYSICIAN RESPONSE: Based on the clinical findings in the record, please respond to the query above on this document as an addendum. Physician Response: Physician Response cardiomyopathy If you have questions please contact: Field Agronomist: Susanna Ext: [phone] Thank you for your time and cooperation. Clinical [employer] Electrical Person/Field Agronomist This is a permanent part of the medical record SUSANNA SORIANO Feb 17, 2021 08:20 NESSA MCFARLAND MD Feb 18, 2021 15:39
== END 2021-02-08 23:10 | disposition expired | DRG 309 ==
LOC: ICU 11:20 → 4TH 02-08 14:28
PROVIDERS: ADMIT Internal Medicine Cardiovascular Disease; ATTEND Family Medicine
PROC: 0DJ08ZZ Inspection of Upper Intestinal Tract, Via Natural or Artificial Opening Endoscopic (ICD-10-PCS; principal; 2021-02-06 12:40)
DX: I48.0 Paroxysmal atrial fibrillation (principal); Z68.1 Body mass index [BMI] 19.9 or less, adult; E87.0 Hyperosmolality and hypernatremia; K92.1 Melena; D50.0 Iron deficiency anemia secondary to blood loss (chronic); I25.10 Atherosclerotic heart disease of native coronary artery without angina pectoris; J43.9 Emphysema, unspecified; I10 Essential (primary) hypertension; Z66 Do not resuscitate; Z51.5 Encounter for palliative care; T18.120A Food in esophagus causing compression of trachea, initial encounter; R09.02 Hypoxemia; R63.4 Abnormal weight loss; F03.90 Unspecified dementia, unspecified severity, without behavioral disturbance, psychotic disturbance, mood disturbance, and anxiety; E03.9 Hypothyroidism, unspecified; I95.9 Hypotension, unspecified; K44.9 Diaphragmatic hernia without obstruction or gangrene; K20.90 Esophagitis, unspecified without bleeding; I49.5 Sick sinus syndrome; I48.92 Unspecified atrial flutter; R55 Syncope and collapse; I65.29 Occlusion and stenosis of unspecified carotid artery; E11.9 Type 2 diabetes mellitus without complications; Z79.84 Long term (current) use of oral hypoglycemic drugs; E78.5 Hyperlipidemia, unspecified; L97.519 Non-pressure chronic ulcer of other part of right foot with unspecified severity; Z87.891 Personal history of nicotine dependence; Z99.81 Dependence on supplemental oxygen; Z95.5 Presence of coronary angioplasty implant and graft; Z79.01 Long term (current) use of anticoagulants; Z85.51 Personal history of malignant neoplasm of bladder
CPT/HCPCS: 36410; 36415; 36569; 71045; 71046; 76937; 78452; 80048; 80053; 80061; 82248; 82274; 82607; 82728; 82746; 82947; 83010; 83540; 83550; 83735; 84100; 84443; 84484; 85007; 85018; 85025; 85027; 85045; 85055; 86850; 86900; 86901; 86920; 87081; 93005; 93017; 93925; 94150; 94640; 94799